=== PATIENT | male | born 1965 | race Caucasian/White ===

== ENCOUNTER 2016-12-06 12:52 | Inpatient (IN) | payer OTHER ==
[2016-12-06 13:38] VITALS: BMI 30.4
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
[2016-12-06] MEDS ORDERED: ACETAMINOPHEN 325 MG TABLET (FP) PO PRN (16:02)
[2016-12-06] MEDS ORDERED: P-EPHED 60MG/TRIPROLIDI 2.5MG TABLET PO PRN (16:02)
[2016-12-06] MEDS ORDERED: MAGNESIUM CITRATE 300 ML BOTTLE PO PRN (16:02)
[2016-12-06] MEDS ORDERED: MENTHOL/PHENOL 1 EACH UD MM PRN (16:02)
[2016-12-06] MEDS ORDERED: MAGNESIUM HYDROX 2400MG/30ML ORAL SUSPENSION 30 ML CUP PO PRN (16:02)
[2016-12-06] MEDS ORDERED: NICOTINE POLACRILEX 4 MG GUM BUC PRN (16:02)
[2016-12-06] MEDS ORDERED: hydrOXYzine PAMOATE 50 MG CAPSULE (FP) PO PRN (16:02)
[2016-12-06] MEDS ORDERED: MAG HYDROX/AL HYDROX/SIMETH 30 ML UNIT-DOSE CUP PO PRN (16:02)
[2016-12-06] MEDS ORDERED: guaiFENesin/D-METHORPHAN HB 10 ML UNIT-DOSE CUPS PO PRN (16:02)
[2016-12-06] MEDS ORDERED: chlordiazePOXIDE HCL 25 MG CAPSULE PO ONE (18:00)
[2016-12-06] MEDS: chlordiazePOXIDE HCL 25 MG CAPSULE PO SCH ×2 (18:13→22:36)
[2016-12-06] MEDS ORDERED: METHADONE HCL 10 MG TABLET (FOR DETOX USE ONLY) PO ONE ×2 (18:15→23:00)
[2016-12-06] MEDS ORDERED: cloNIDine HCL 0.1 MG TABLET PO ONE (18:15)
--- NOTE | 2016-12-06 20:05 | PN ---
S Progress Note Note: RECEIVED PHARMACIST CALL PATIENT IS ON METHADONE, VISTARIL, ZOFRAN QTC NEEDED TO MONITOR CURRENT QTC 489 REPEAT ECG CONTINUE DETOX
[2016-12-06] MEDS: THIAMINE HCL 100 MG TABLET (FP) PO SCH (22:35)
[2016-12-06] MEDS: cloNIDine HCL 0.1 MG TABLET PO SCH (22:35)
[2016-12-06] MEDS: diphenhydrAMINE HCL 50 MG CAPSULE PO PRN (22:36)
[2016-12-07] MEDS: chlordiazePOXIDE HCL 25 MG CAPSULE PO SCH ×4 (05:35→22:52)
[2016-12-07] MEDS: IBUPROFEN 400 MG TABLET (FP) PO PRN ×2 (05:36→17:47)
[2016-12-07] MEDS ORDERED: METHADONE HCL 10 MG TABLET (FOR DETOX USE ONLY) PO SCH (10:00)
[2016-12-07 10:38] LABS: ALK PHOS 121 U/L (45-117); ANION GAP 11 (8-16); BILIRUBIN,TOTAL 0.5 mg/dL (0.2-1.0); CALCIUM 7.5 mg/dL (8.5-10.1); CO2 28 mmol/L (21-32); CREATININE 0.4 mg/dL (0.7-1.3); GLUCOSE,RANDOM 96 mg/dL (74-106); SGOT/AST 42 U/L (15-37); SGPT/ALT 63 U/L (12-78); TOT PROT 7.3 g/dl (6.4-8.2)
[2016-12-07 10:41] LABS: MCH 25.5 pg (25.7-33.7); MCHC 32.1 g/dl (32.0-35.9); MEAN CELL VOLUME 79.5 fl (80-96); MEAN PLT VOLUME 8.3 fl (7.5-11.1); PLATELET COUNT 330 K/MM3 (134-434); RDW 21.1 % (11.9-15.9); WHITE BLOOD COUNT 5.3 K/mm3 (4.0-10.0)
[2016-12-07] MEDS: PRENATAL VITAMINS W/ FOLIC ACID TABLET (FP) PO SCH (10:44)
[2016-12-07] MEDS: NICOTINE 21 MG/24 HOURS TOPICAL PATCH TD SCH (10:44)
[2016-12-07] MEDS: cloNIDine HCL 0.1 MG TABLET PO SCH ×2 (10:45→22:53)
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
[2016-12-07] MEDS: POTASSIUM CHLORIDE TABS 20 MEQ TABLET.ER (FP) PO SCH ×2 (11:06→22:53)
[2016-12-07] MEDS: LOPERAMIDE HCL 2 MG CAPSULE PO PRN ×2 (11:36→17:49)
--- NOTE | 2016-12-07 13:34 | EKG ---
Test Reason : Blood Pressure : / mmHG Vent. Rate : 093 BPM Atrial Rate : 093 BPM P-R Int : 150 ms QRS Dur : 104 ms QT Int : 394 ms P-R-T Axes : 059 024 056 degrees QTc Int : 489 ms NORMAL SINUS RHYTHM PROLONGED QT ABNORMAL ECG NO PREVIOUS ECGS AVAILABLE Confirmed by LUCIA PENA MD ([id number]) on 12/07/2016 1:34:23 PM Referred By: Confirmed By:LUCIA PENA MD
--- NOTE | 2016-12-07 13:36 | EKG ---
Test Reason : Blood Pressure : / mmHG Vent. Rate : 068 BPM Atrial Rate : 068 BPM P-R Int : 158 ms QRS Dur : 102 ms QT Int : 460 ms P-R-T Axes : 049 026 035 degrees QTc Int : 489 ms NORMAL SINUS RHYTHM PROLONGED QT ABNORMAL ECG WHEN COMPARED WITH ECG OF 06-DEC-2016 18:03, NO SIGNIFICANT CHANGE WAS FOUND Confirmed by LUCIA PENA MD ([id number]) on 12/07/2016 1:36:11 PM Referred By: Confirmed By:LUCIA PENA MD
[2016-12-07] MEDS: chlordiazePOXIDE HCL 25 MG CAPSULE PO PRN ×2 (13:57→20:02)
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
[2016-12-07] MEDS: PANTOPRAZOLE 40 MG TABLET (FP) PO SCH (15:38)
[2016-12-07] MEDS: ONDANSETRON *ODT* 4 MG TABLET SL PRN (15:59)
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
[2016-12-07 19:29] LABS: URINE APPEARANCE CLOUDY; URINE COLOR AMBER; URINE GLUCOSE (UA) NEGATIVE (NEGATIVE); URINE KETONE TRACE (NEGATIVE); URINE NITRITE NEGATIVE (NEGATIVE); URINE UROBILINOGEN 2.0 E.U/dl E.U./dl (0.2-1.0)
[2016-12-07 19:30] LABS: URINE BLOOD 1+ (NEGATIVE); URINE LEUK ESTERASE TRACE (NEGATIVE); URINE PROTEIN 2+ (NEGATIVE)
[2016-12-07 19:36] LABS: URINE BACTERIA MODERATE /hpf (NONE SEEN); URINE HYALINE CAST 33 /lpf; URINE MUCUS MANY; URINE RBC 4 /hpf (0-3); URINE WBC 11 /hpf (3-5)
[2016-12-07] MEDS ORDERED: DIVALPROEX SODIUM 250 MG TABLET E.C. (FP) PO SCH (22:00)
[2016-12-07] MEDS: THIAMINE HCL 100 MG TABLET (FP) PO SCH (22:52)
[2016-12-07] MEDS: QUEtiapine FUMARATE 100 MG TABLET (FP) PO SCH (22:53)
[2016-12-08] MEDS: IBUPROFEN 400 MG TABLET (FP) PO PRN ×2 (05:55→15:24)
[2016-12-08] MEDS: chlordiazePOXIDE HCL 25 MG CAPSULE PO SCH ×2 (05:55→11:05)
--- NOTE | 2016-12-08 10:36 | EKG ---
Test Reason : Blood Pressure : / mmHG Vent. Rate : 095 BPM Atrial Rate : 095 BPM P-R Int : 150 ms QRS Dur : 096 ms QT Int : 384 ms P-R-T Axes : 056 054 051 degrees QTc Int : 482 ms NORMAL SINUS RHYTHM PROLONGED QT ABNORMAL ECG WHEN COMPARED WITH ECG OF 07-DEC-2016 07:00, NO SIGNIFICANT CHANGE WAS FOUND Confirmed by GUNNER DRAKE MD ([id number]) on 12/08/2016 10:36:44 AM Referred By: Confirmed By:GUNNER DRAKE MD
[2016-12-08] MEDS: cloNIDine HCL 0.1 MG TABLET PO SCH ×2 (11:01→22:53)
[2016-12-08] MEDS: POTASSIUM CHLORIDE TABS 20 MEQ TABLET.ER (FP) PO SCH ×2 (11:02→22:53)
[2016-12-08] MEDS: PRENATAL VITAMINS W/ FOLIC ACID TABLET (FP) PO SCH (11:02)
[2016-12-08] MEDS: METHADONE HCL 5 MG TABLET (FOR DETOX USE ONLY) PO SCH (11:02)
[2016-12-08] MEDS: PANTOPRAZOLE 40 MG TABLET (FP) PO SCH (11:03)
[2016-12-08] MEDS: NICOTINE 21 MG/24 HOURS TOPICAL PATCH TD SCH (11:04)
--- NOTE | 2016-12-08 11:20 | PN ---
[facility] CIWA - CIWA Score Nausea/Vomitin-No Nausea/No Vomiting Muscle Tremors: 4-Moderate,w/Arms Extend Anxiety: 4-Mod. Anxious/Guarded Agitation: 4-Moderately Restless Paroxysmal Sweats: 1-Minimal Palms Moist Orientation: 0-Oriented Tacttile Disturbances: 3-Moderate Itch/Numb/Burn Auditory Disturbances: 0-None Visual Disturbances: 0-None Headache: 0-None Present CIWA-Ar Total Score: 16 BHS COWS - Scale Resting Pulse: 2= [place] 101-120 Sweatin= Chills/Flushing Restless Observation: 3= Extraneous Movement Pupil Size: 2= Moderately Dilated Bone or Joint Aches: 4=Acute Joint/Muscle Pain Runny Nose/ Eye Tearin= Nasal Congestion GI Upset > 30mins: 1= Stomach Cramp Tremor Observation of Outstretched Hands: 2= Slight Tremor Visible Yawning Observation: 1= 1-2x During Session Anxiety or Irritability: 1=Feels Anxious/Irritable Goose Flesh Skin: 0=Smooth Skin COWS Score: 18 [facility] Progress Note (SOAP) Subjective: ANXIETY, SWEATS, TREMORS, BODY ACHES,INTERMITTENT SLEEP. C/O CHRONIC ULCER ON SACRUM AND BOTH CHEEKS OF BUTTOCKS. Objective: 12/08/16 14:05 Vital Signs Temperature 96.3 F L 12/08/16 10:25 Pulse Rate 102 H 12/08/16 10:25 Respiratory Rate 16 12/08/16 10:25 Blood Pressure 100/56 12/08/16 10:25 O2 Sat by Pulse Oximetry (%) Laboratory Last Values WBC 5.3 K/mm3 (4.0-10.0) 12/07/16 07:00 RBC 3.25 M/mm3 (4.00-5.60) L 12/07/16 07:00 Hgb 8.3 GM/dL (11.7-16.9) L 12/07/16 07:00 Hct 25.8 % (35.4-49) L 12/07/16 07:00 MCV 79.5 fl (80-96) L 12/07/16 07:00 MCHC 32.1 g/dl (32.0-35.9) 12/07/16 07:00 RDW 21.1 % (11.9-15.9) H 12/07/16 07:00 Plt Count 330 K/MM3 (134-434) 12/07/16 07:00 MPV 8.3 fl (7.5-11.1) 12/07/16 07:00 Sodium 135 mmol/L (136-145) L 12/07/16 07:00 Potassium 3.1 mmol/L (3.5-5.1) L 12/07/16 07:00 Chloride 96 mmol/L (98-107) L 12/07/16 07:00 Carbon Dioxide 28 mmol/L (21-32) 12/07/16 07:00 Anion Gap 11 (8-16) 12/07/16 07:00 BUN 4 mg/dL (7-18) L 12/07/16 07:00 Creatinine 0.4 mg/dL (0.7-1.3) L 12/07/16 07:00 Creat Clearance w eGFR > 60 (>60) 12/07/16 07:00 Random Glucose 96 mg/dL (74-106) 12/07/16 07:00 Calcium 7.5 mg/dL (8.5-10.1) L 12/07/16 07:00 Total Bilirubin 0.5 mg/dL (0.2-1.0) 12/07/16 07:00 AST 42 U/L (15-37) H 12/07/16 07:00 ALT 63 U/L (12-78) 12/07/16 07:00 Alkaline Phosphatase 121 U/L (45-117) H 12/07/16 07:00 Total Protein 7.3 g/dl (6.4-8.2) 12/07/16 07:00 Albumin 2.0 g/dl (3.4-5.0) L 12/07/16 07:00 Urine Color [place] 12/07/16 12:00 Urine Appearance Cloudy 12/07/16 12:00 Urine pH 5.0 (5.0-8.0) 12/07/16 12:00 Ur Specific [place] 1.035 (1.001-1.035) 12/07/16 12:00 Urine Protein 2+ (NEGATIVE) H 12/07/16 12:00 Urine Glucose (UA) Negative (NEGATIVE) 12/07/16 12:00 Urine Ketones Trace (NEGATIVE) H 12/07/16 12:00 Urine Blood 1+ (NEGATIVE) H 12/07/16 12:00 Urine Nitrite Negative (NEGATIVE) 12/07/16 12:00 Urine Bilirubin 2.0 (NEGATIVE) 12/07/16 12:00 Urine Urobilinogen 2.0 e.u/dl E.U./dl (0.2-1.0) 12/07/16 12:00 Ur Leukocyte Esterase Trace (NEGATIVE) H 12/07/16 12:00 Urine RBC 4 /hpf (0-3) 12/07/16 12:00 Urine WBC 11 /hpf (3-5) 12/07/16 12:00 Ur Epithelial Cells Moderate /hpf (FEW) 12/07/16 12:00 Urine Bacteria Moderate /hpf (NONE SEEN) 12/07/16 12:00 Hyaline Casts 33 /lpf 12/07/16 12:00 Urine Mucus Many 12/07/16 12:00 RPR Titer Nonreactive (NONREACTIVE) 12/07/16 07:00 BOTTOCKS:LARGE AREAS OF GRANULATED TISSUE ON BOTH CHEEKS, CLEAN WITH NO DRAINAGE OR PAIN. ABNORMAL LABS/UA ORDERED FOR REPEAT. Assessment: 12/08/16 14:05 WITHDRAWAL SX Plan: CONTINUE DETOX SACRAL/BUTTOCKS ULCER CARE DIRECTED.
[2016-12-08] MEDS: chlordiazePOXIDE HCL 25 MG CAPSULE PO PRN (15:28)
[2016-12-08] MEDS: chlordiazePOXIDE 5 MG CAPSULE PO SCH ×2 (18:20→22:53)
[2016-12-08] MEDS: QUEtiapine FUMARATE 100 MG TABLET (FP) PO SCH (22:53)
[2016-12-08] MEDS: THIAMINE HCL 100 MG TABLET (FP) PO SCH (22:53)
[2016-12-09] MEDS: IBUPROFEN 400 MG TABLET (FP) PO PRN ×3 (05:40→22:21)
[2016-12-09] MEDS: chlordiazePOXIDE 5 MG CAPSULE PO SCH ×2 (05:40→10:23)
[2016-12-09 10:03] LABS: MCH 25.2 pg (25.7-33.7); MCHC 31.1 g/dl (32.0-35.9); MEAN PLT VOLUME 8.4 fl (7.5-11.1); PLATELET COUNT 392 K/MM3 (134-434); RDW 20.6 % (11.9-15.9); WHITE BLOOD COUNT 5.1 K/mm3 (4.0-10.0)
[2016-12-09] MEDS: cloNIDine HCL 0.1 MG TABLET PO SCH ×2 (10:23→22:20)
[2016-12-09] MEDS: PANTOPRAZOLE 40 MG TABLET (FP) PO SCH (10:23)
[2016-12-09] MEDS: POTASSIUM CHLORIDE TABS 20 MEQ TABLET.ER (FP) PO SCH ×2 (10:23→22:20)
[2016-12-09] MEDS: NICOTINE 21 MG/24 HOURS TOPICAL PATCH TD SCH (10:24)
[2016-12-09] MEDS: METHADONE HCL 5 MG TABLET (FOR DETOX USE ONLY) PO SCH (10:24)
[2016-12-09] MEDS: PRENATAL VITAMINS W/ FOLIC ACID TABLET (FP) PO SCH (10:24)
[2016-12-09 10:25] LABS: ALBUMIN 1.9 g/dl (3.4-5.0); ALK PHOS 101 U/L (45-117); ANION GAP 9 (8-16); BILIRUBIN,TOTAL 0.4 mg/dL (0.2-1.0); CALCIUM 7.9 mg/dL (8.5-10.1); CO2 29 mmol/L (21-32); CREATININE 0.5 mg/dL (0.7-1.3); GLUCOSE,RANDOM 94 mg/dL (74-106); SGOT/AST 34 U/L (15-37); SGPT/ALT 48 U/L (12-78); TOT PROT 7.1 g/dl (6.4-8.2)
[2016-12-09 10:51] LABS: ANISOCYTOSIS 2+; HYPOCHROMIA 1+; MICROCYTOSIS 1+; PLATELET COMMENT2 NO CLUMPING NOTED; PLATELET ESTIMATE INCREASED (NORMAL)
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
[2016-12-09] MEDS: FERROUS SO4 325 MG TABLET (FP) PO SCH ×2 (13:10→22:20)
[2016-12-09] MEDS: chlordiazePOXIDE HCL 10 MG CAPSULE PO SCH ×2 (17:43→22:20)
[2016-12-09] MEDS: THIAMINE HCL 100 MG TABLET (FP) PO SCH (22:19)
[2016-12-09] MEDS: LOPERAMIDE HCL 2 MG CAPSULE PO PRN (22:20)
[2016-12-09] MEDS: diphenhydrAMINE HCL 50 MG CAPSULE PO PRN (22:20)
[2016-12-09] MEDS: QUEtiapine FUMARATE 100 MG TABLET (FP) PO SCH (22:20)
[2016-12-09 23:08] LABS: URINE APPEARANCE CLEAR; URINE BILIRUBIN NEGATIVE (NEGATIVE); URINE BLOOD NEGATIVE (NEGATIVE); URINE COLOR LTYELLOW; URINE GLUCOSE (UA) NEGATIVE (NEGATIVE); URINE KETONE NEGATIVE (NEGATIVE); URINE LEUK ESTERASE NEGATIVE (NEGATIVE); URINE NITRITE NEGATIVE (NEGATIVE); URINE PROTEIN NEGATIVE (NEGATIVE); URINE UROBILINOGEN 2.0 E.U/dl E.U./dl (0.2-1.0)
[2016-12-10] MEDS: chlordiazePOXIDE HCL 10 MG CAPSULE PO SCH ×2 (05:58→10:34)
[2016-12-10] MEDS ORDERED: METHADONE HCL 10 MG TABLET (FOR DETOX USE ONLY) PO SCH (10:00)
[2016-12-10] MEDS: cloNIDine HCL 0.1 MG TABLET PO SCH ×2 (10:34→22:24)
[2016-12-10] MEDS: PRENATAL VITAMINS W/ FOLIC ACID TABLET (FP) PO SCH (10:34)
[2016-12-10] MEDS: POTASSIUM CHLORIDE TABS 20 MEQ TABLET.ER (FP) PO SCH ×2 (10:34→22:24)
[2016-12-10] MEDS: FERROUS SO4 325 MG TABLET (FP) PO SCH ×2 (10:34→22:24)
[2016-12-10] MEDS: PANTOPRAZOLE 40 MG TABLET (FP) PO SCH (10:34)
[2016-12-10] MEDS: NICOTINE 21 MG/24 HOURS TOPICAL PATCH TD SCH (10:34)
[2016-12-10] MEDS: THIAMINE HCL 100 MG TABLET (FP) PO SCH (22:24)
[2016-12-10] MEDS: QUEtiapine FUMARATE 100 MG TABLET (FP) PO SCH (22:24)
[2016-12-10] MEDS: diphenhydrAMINE HCL 50 MG CAPSULE PO PRN (22:24)
[2016-12-10] MEDS: IBUPROFEN 400 MG TABLET (FP) PO PRN (22:26)
[2016-12-11] MEDS ORDERED: METHADONE HCL 5 MG TABLET (FOR DETOX USE ONLY) PO SCH (06:00)
[2016-12-11 09:52] VITALS: BP 115/71; PULSE 107; TEMP 96.8
[2016-12-11] MEDS: LOPERAMIDE HCL 2 MG CAPSULE PO PRN (10:09)
[2016-12-11] MEDS: POTASSIUM CHLORIDE TABS 20 MEQ TABLET.ER (FP) PO SCH (10:09)
[2016-12-11] MEDS: cloNIDine HCL 0.1 MG TABLET PO SCH (10:09)
[2016-12-11] MEDS: PRENATAL VITAMINS W/ FOLIC ACID TABLET (FP) PO SCH (10:09)
[2016-12-11] MEDS: PANTOPRAZOLE 40 MG TABLET (FP) PO SCH (10:10)
[2016-12-11] MEDS: NICOTINE 21 MG/24 HOURS TOPICAL PATCH TD SCH (10:10)
[2016-12-11] MEDS: FERROUS SO4 325 MG TABLET (FP) PO SCH (10:10)
[2016-12-11] MEDS: ONDANSETRON *ODT* 4 MG TABLET SL PRN (11:12)
--- NOTE | 2016-12-11 13:07 | DS ---
[facility] Detox Discharge Summary Admission Date: 12/06/16 Discharge Date: 12/11/16 - History Present History: Alcohol Dependence, Opioid Dependence Pertinent Past History: Anemia - Physical Exam Results Vital Signs: Vital Signs Temperature 96.8 F L 12/11/16 09:51 Pulse Rate 107 H 12/11/16 09:51 Respiratory Rate 18 12/11/16 09:51 Blood Pressure 115/71 12/11/16 09:51 O2 Sat by Pulse Oximetry (%) Pertinent Admission Physical Exam Findings: Withdrawal symptoms Laboratory Tests 12/07/16 12/07/16 12/07/16 07:00 07:00 07:00 WBC 5.3 RBC 3.25 L Hgb 8.3 L Hct 25.8 L MCV 79.5 L MCHC 32.1 RDW 21.1 H Plt Count 330 MPV 8.3 Platelet Estimate Platelet Comment Hypochromic-Microcytic Anisocytosis Microcytosis Sodium 135 L Potassium 3.1 L Chloride 96 L Carbon Dioxide 28 Anion Gap 11 BUN 4 L Creatinine 0.4 L Creat Clearance w eGFR > 60 Random Glucose 96 Calcium 7.5 L Total Bilirubin 0.5 AST 42 H ALT 63 Alkaline Phosphatase 121 H Total Protein 7.3 Albumin 2.0 L Urine Color Urine Appearance Urine pH Ur Specific [place] Urine Protein Urine Glucose (UA) Urine Ketones Urine Blood Urine Nitrite Urine Bilirubin Urine Urobilinogen Ur Leukocyte Esterase Urine RBC Urine WBC Ur Epithelial Cells Urine Bacteria Hyaline Casts Urine Mucus RPR Titer Nonreactive 12/07/16 12/09/16 12/09/16 12:00 07:16 07:16 WBC 5.1 RBC 3.29 L Hgb 8.3 L Hct 26.7 L MCV 81.0 MCHC 31.1 L RDW 20.6 H Plt Count 392 MPV 8.4 Platelet Estimate Increased Platelet Comment No clumping noted Hypochromic-Microcytic 1+ Anisocytosis 2+ Microcytosis 1+ Sodium 136 Potassium 3.8 D Chloride 98 Carbon Dioxide 29 Anion Gap 9 BUN 4 L Creatinine 0.5 L D Creat Clearance w eGFR > 60 Random Glucose 94 Calcium 7.9 L Total Bilirubin 0.4 AST 34 ALT 48 D Alkaline Phosphatase 101 Total Protein 7.1 Albumin 1.9 L Urine Color [place] Urine Appearance Cloudy Urine pH 5.0 Ur Specific [place] 1.035 Urine Protein 2+ H Urine Glucose (UA) Negative Urine Ketones Trace H Urine Blood 1+ H Urine Nitrite Negative Urine Bilirubin 2.0 Urine Urobilinogen 2.0 e.u/dl Ur Leukocyte Esterase Trace H Urine RBC 4 Urine WBC 11 Ur Epithelial Cells Moderate Urine Bacteria Moderate Hyaline Casts 33 Urine Mucus Many RPR Titer 12/09/16 23:00 WBC RBC Hgb Hct MCV MCHC RDW Plt Count MPV Platelet Estimate Platelet Comment Hypochromic-Microcytic Anisocytosis Microcytosis Sodium Potassium Chloride Carbon Dioxide Anion Gap BUN Creatinine Creat Clearance w eGFR Random Glucose Calcium Total Bilirubin AST ALT Alkaline Phosphatase Total Protein Albumin Urine Color [place] Urine Appearance Clear Urine pH 7.0 D Ur Specific [place] 1.014 Urine Protein Negative Urine Glucose (UA) Negative Urine Ketones Negative Urine Blood Negative Urine Nitrite Negative Urine Bilirubin Negative Urine Urobilinogen 2.0 e.u/dl Ur Leukocyte Esterase Negative Urine RBC Urine WBC Ur Epithelial Cells Urine Bacteria Hyaline Casts Urine Mucus RPR Titer Labs noted - Treatment Hospital Course: Detox Protocol Followed, Detoxed Safely, Responded well, Discharged Condition Good - Medication Discharge Medications: Ambulatory Orders Divalproex [Depakote -] 500 mg PO BID 12/06/16 Quetiapine Fumarate [Seroquel -] 200 mg PO HS 12/06/16 - Diagnosis (1) Alcohol dependence with uncomplicated withdrawal Current Visit: Yes Status: Acute (2) Nicotine dependence Current Visit: Yes Status: Chronic Qualifiers: Nicotine product type: cigarettes Substance use status: uncomplicated Qualified Code(s): F17.210 - Nicotine dependence, cigarettes, uncomplicated (3) Opioid dependence with withdrawal Current Visit: Yes Status: Acute (4) Anemia, unspecified Current Visit: Yes Status: Acute (5) Seizure disorder Current Visit: Yes Status: Chronic (6) Depression Current Visit: Yes Status: Chronic (7) Bipolar disorder Current Visit: Yes Status: Chronic - AMA Did Patient Leave Against Medical Advice: No
== END 2016-12-11 12:32 | disposition home or self-care (01) | DRG 773 ==
LOC: YASAS 12:52 → Y3N 17:19
PROVIDERS: ADMIT Internal Medicine; ATTEND Internal Medicine
PROC: HZ2ZZZZ Detoxification Services for Substance Abuse Treatment (ICD-10-PCS; principal; 2016-12-11)
DX: F11.23 Opioid dependence with withdrawal (principal); F10.230 Alcohol dependence with withdrawal, uncomplicated; F17.210 Nicotine dependence, cigarettes, uncomplicated; F31.89 Other bipolar disorder; G40.909 Epilepsy, unspecified, not intractable, without status epilepticus; D64.9 Anemia, unspecified
CPT/HCPCS: 36415; 71020-TC; 73110-TC-LT; 73130-TC-LT; 80053; 81003; 81015; 85027; 86593; 87086; 93005; 93010

== ENCOUNTER 2019-09-23 19:36 | Inpatient (IN) | payer OTHER ==
[2019-09-23 20:43] VITALS: BMI 31.4
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
[2019-09-23] MEDS ORDERED: guaiFENesin 200 MG/10 ML 10 ML UNIT-DOSE CUPS PO PRN (23:19)
[2019-09-23] MEDS ORDERED: NICOTINE POLACRILEX 2 MG GUM BC PRN (23:19)
[2019-09-23] MEDS ORDERED: MAGNESIUM CITRATE 300 ML BOTTLE PO PRN (23:19)
[2019-09-23] MEDS ORDERED: MENTHOL/PHENOL 1 EACH UD MM PRN (23:19)
[2019-09-23] MEDS ORDERED: P-EPHED 60MG/TRIPROLIDI 2.5MG TABLET PO PRN (23:19)
[2019-09-23] MEDS ORDERED: IBUPROFEN 400 MG TABLET (FP) PO PRN (23:19)
[2019-09-23] MEDS ORDERED: LOPERAMIDE HCL 2 MG CAPSULE PO PRN (23:19)
[2019-09-23] MEDS ORDERED: QUEtiapine FUMARATE 100 MG TABLET (FP) PO ONE (23:28)
[2019-09-24] MEDS: DIVALPROEX SODIUM 500 MG TABLET E.C. PO SCH ×3 (01:04→21:34)
[2019-09-24] MEDS ORDERED: CLINDAMYCIN PHOSPHATE 1% TOPICAL GEL 30 GM TUBE TP SCH (10:00)
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
--- NOTE | 2019-09-24 10:24 | EKG ---
Test Reason : Blood Pressure : / mmHG Vent. Rate : 079 BPM Atrial Rate : 079 BPM P-R Int : 176 ms QRS Dur : 102 ms QT Int : 388 ms P-R-T Axes : 049 009 040 degrees QTc Int : 444 ms NORMAL SINUS RHYTHM NORMAL ECG WHEN COMPARED WITH ECG OF 08-DEC-2016 06:36, NO SIGNIFICANT CHANGE WAS FOUND Confirmed by MD Alma, Jan ([id number]) on 09/24/2019 10:24:24 AM Referred By: SHANE Confirmed By:Jan Marquez MD
[2019-09-24 11:53] LABS: PH,URINE >= 9.0 (5.0-8.0); URINE APPEARANCE CLEAR; URINE BILIRUBIN NEGATIVE (NEGATIVE); URINE COLOR YELLOW; URINE GLUCOSE (UA) NEGATIVE (NEGATIVE); URINE KETONE NEGATIVE (NEGATIVE); URINE LEUK ESTERASE NEGATIVE (NEGATIVE); URINE NITRITE NEGATIVE (NEGATIVE); URINE PROTEIN NEGATIVE (NEGATIVE); URINE UROBILINOGEN 0.2 mg/dL (0.2-1.0)
[2019-09-24] MEDS: PRENATAL VITAMINS W/ FOLIC ACID TABLET (FP) PO SCH (12:02)
[2019-09-24] MEDS: NICOTINE 21 MG/24 HOURS TOPICAL PATCH TD SCH (12:02)
[2019-09-24] MEDS: CLINDAMYCIN PHOSPHATE 1% TOPICAL GEL 30 GM TUBE TP SCH ×2 (12:03→21:37)
[2019-09-24] MEDS: MINERAL OIL/PETROLAT/WATER TOPICAL CREAM 113 GM JAR TP SCH ×2 (12:04→21:37)
[2019-09-24] MEDS: CHLORHEXIDINE GLUCONATE TP SCH (13:00)
[2019-09-24 14:50] LABS: HEMATOCRIT 36.4 % (35.4-49); HEMOGLOBIN 11.8 GM/dL (11.7-16.9); MCH 28.6 pg (25.7-33.7); MCHC 32.5 g/dl (32.0-35.9); MEAN CELL VOLUME 88.2 fl (80-96); MEAN PLT VOLUME 9.7 fl (7.5-11.1); PLATELET COUNT 260 K/MM3 (134-434); RBC 4.13 M/mm3 (4.00-5.60); RDW 18.6 % (11.9-15.9); WHITE BLOOD COUNT 6.2 K/mm3 (4.0-10.0)
[2019-09-24 15:01] LABS: ALBUMIN 3.1 g/dl (3.4-5.0); BILIRUBIN,TOTAL 0.1 mg/dL (0.2-1); BLOOD UREA NITROGEN 18.9 mg/dL (7-18); CALCIUM 8.9 mg/dL (8.5-10.1); CREATININE 0.6 mg/dL (0.55-1.3); POTASSIUM 4.5 mmol/L (3.5-5.1); TOT PROT 7.3 g/dl (6.4-8.2)
--- NOTE | 2019-09-24 15:30 | PN ---
[facility] Progress Note Note: Pt is a 54 y/o male with a hx of VELMA-alcohol dependence admitted to rehab from [facility]. Pt reports he was discharged from [facility] yesterday for abscess on his buttocks after 2 weeks stay. Reports he was referred here after discharge yesterday. Vital Signs - 24 hr 09/23/19 09/24/19 09/24/19 20:28 03:30 07:17 Temperature 97.8 F Pulse Rate 85 97 H Respiratory 18 20 20 Rate Blood Pressure 110/72 112/68 alert o x 3 nad oob ambulating with steady gait Examined pt with nurse Sarah- large area of both buttocks with healed granulated skin tissue. A/P S/P heeling abscess, buttocks Continue cleocin gel clean buttocks area as directed Increase [id number] mg po q6h prn for pain Use tucks wipes after each BM or as needed.
[2019-09-24] MEDS ORDERED: WITCH HAZEL 50% (TUCKS) 40 PAD/JAR PAD TP PRN (15:52)
[2019-09-24] MEDS: QUEtiapine FUMARATE 300 MG TABLET PO SCH (21:34)
[2019-09-24] MEDS: IBUPROFEN 600 MG TABLET (FP) PO PRN (21:35)
[2019-09-24] MEDS: THIAMINE HCL 100 MG TABLET (FP) PO SCH (21:36)
[2019-09-25] MEDS: IBUPROFEN 600 MG TABLET (FP) PO PRN ×2 (06:19→21:25)
[2019-09-25] MEDS: NICOTINE 21 MG/24 HOURS TOPICAL PATCH TD SCH (10:39)
[2019-09-25] MEDS: DIVALPROEX SODIUM 500 MG TABLET E.C. PO SCH ×2 (10:40→21:23)
[2019-09-25] MEDS: PRENATAL VITAMINS W/ FOLIC ACID TABLET (FP) PO SCH (10:40)
[2019-09-25] MEDS: ACETAMINOPHEN 325 MG TABLET (FP) PO PRN (10:42)
[2019-09-25] MEDS: hydrOXYzine PAMOATE 50 MG CAPSULE (FP) PO PRN (10:43)
[2019-09-25] MEDS: CHLORHEXIDINE GLUCONATE TP SCH (12:50)
[2019-09-25] MEDS: CLINDAMYCIN PHOSPHATE 1% TOPICAL GEL 30 GM TUBE TP SCH ×2 (12:50→21:24)
[2019-09-25] MEDS: MINERAL OIL/PETROLAT/WATER TOPICAL CREAM 113 GM JAR TP SCH ×2 (12:51→21:24)
[2019-09-25] MEDS: QUEtiapine FUMARATE 300 MG TABLET PO SCH (21:24)
[2019-09-25] MEDS: THIAMINE HCL 100 MG TABLET (FP) PO SCH (21:24)
[2019-09-26] MEDS: IBUPROFEN 600 MG TABLET (FP) PO PRN ×3 (06:33→21:26)
[2019-09-26] MEDS: DIVALPROEX SODIUM 500 MG TABLET E.C. PO SCH ×2 (09:49→21:24)
[2019-09-26] MEDS: PRENATAL VITAMINS W/ FOLIC ACID TABLET (FP) PO SCH (09:49)
[2019-09-26] MEDS: CLINDAMYCIN PHOSPHATE 1% TOPICAL GEL 30 GM TUBE TP SCH ×2 (09:50→21:24)
[2019-09-26] MEDS: MINERAL OIL/PETROLAT/WATER TOPICAL CREAM 113 GM JAR TP SCH ×2 (09:50→21:24)
[2019-09-26] MEDS: CHLORHEXIDINE GLUCONATE TP SCH (09:50)
[2019-09-26] MEDS: NICOTINE 21 MG/24 HOURS TOPICAL PATCH TD SCH (09:51)
[2019-09-26] MEDS: TOLNAFTATE 1% CREAM 15 GM TUBE TP SCH ×2 (13:57→21:47)
[2019-09-26] MEDS: THIAMINE HCL 100 MG TABLET (FP) PO SCH (21:24)
[2019-09-26] MEDS: QUEtiapine FUMARATE 300 MG TABLET PO SCH (21:24)
[2019-09-27] MEDS: PRENATAL VITAMINS W/ FOLIC ACID TABLET (FP) PO SCH (10:22)
[2019-09-27] MEDS: DIVALPROEX SODIUM 500 MG TABLET E.C. PO SCH ×2 (10:22→21:18)
[2019-09-27] MEDS: NICOTINE 21 MG/24 HOURS TOPICAL PATCH TD SCH (10:22)
[2019-09-27] MEDS: CHLORHEXIDINE GLUCONATE TP SCH (10:23)
[2019-09-27] MEDS: CLINDAMYCIN PHOSPHATE 1% TOPICAL GEL 30 GM TUBE TP SCH ×2 (10:25→21:21)
[2019-09-27] MEDS: MINERAL OIL/PETROLAT/WATER TOPICAL CREAM 113 GM JAR TP SCH ×2 (10:26→21:21)
[2019-09-27] MEDS: TOLNAFTATE 1% CREAM 15 GM TUBE TP SCH ×2 (10:38→21:21)
[2019-09-27] MEDS: METHOCARBAMOL 500 MG TABLET PO PRN ×2 (11:02→21:20)
[2019-09-27] MEDS: IBUPROFEN 600 MG TABLET (FP) PO PRN ×2 (11:02→21:20)
[2019-09-27] MEDS: QUEtiapine FUMARATE 300 MG TABLET PO SCH (21:18)
[2019-09-27] MEDS: THIAMINE HCL 100 MG TABLET (FP) PO SCH (21:21)
[2019-09-28] MEDS: METHOCARBAMOL 500 MG TABLET PO PRN ×2 (06:47→21:24)
[2019-09-28] MEDS: hydrOXYzine PAMOATE 50 MG CAPSULE (FP) PO PRN (06:47)
[2019-09-28] MEDS: IBUPROFEN 600 MG TABLET (FP) PO PRN ×2 (06:47→21:26)
[2019-09-28] MEDS: DIVALPROEX SODIUM 500 MG TABLET E.C. PO SCH ×2 (10:32→21:23)
[2019-09-28] MEDS: CHLORHEXIDINE GLUCONATE TP SCH (10:32)
[2019-09-28] MEDS: PRENATAL VITAMINS W/ FOLIC ACID TABLET (FP) PO SCH (10:32)
[2019-09-28] MEDS: CLINDAMYCIN PHOSPHATE 1% TOPICAL GEL 30 GM TUBE TP SCH ×2 (10:33→21:29)
[2019-09-28] MEDS: MINERAL OIL/PETROLAT/WATER TOPICAL CREAM 113 GM JAR TP SCH ×2 (10:33→21:25)
[2019-09-28] MEDS: NICOTINE 21 MG/24 HOURS TOPICAL PATCH TD SCH (10:33)
[2019-09-28] MEDS: TOLNAFTATE 1% CREAM 15 GM TUBE TP SCH ×3 (10:33→21:24)
[2019-09-28] MEDS: QUEtiapine FUMARATE 300 MG TABLET PO SCH (21:24)
[2019-09-28] MEDS: THIAMINE HCL 100 MG TABLET (FP) PO SCH (21:24)
[2019-09-29] MEDS: IBUPROFEN 600 MG TABLET (FP) PO PRN ×3 (06:53→21:15)
[2019-09-29] MEDS: METHOCARBAMOL 500 MG TABLET PO PRN ×3 (06:53→21:15)
[2019-09-29] MEDS: MINERAL OIL/PETROLAT/WATER TOPICAL CREAM 113 GM JAR TP SCH ×2 (09:57→21:13)
[2019-09-29] MEDS: TOLNAFTATE 1% CREAM 15 GM TUBE TP SCH ×2 (09:57→21:17)
[2019-09-29] MEDS: NICOTINE 21 MG/24 HOURS TOPICAL PATCH TD SCH (09:57)
[2019-09-29] MEDS: PRENATAL VITAMINS W/ FOLIC ACID TABLET (FP) PO SCH (09:57)
[2019-09-29] MEDS: DIVALPROEX SODIUM 500 MG TABLET E.C. PO SCH ×2 (09:57→21:13)
[2019-09-29] MEDS: CLINDAMYCIN PHOSPHATE 1% TOPICAL GEL 30 GM TUBE TP SCH ×2 (09:58→21:13)
[2019-09-29] MEDS: CHLORHEXIDINE GLUCONATE TP SCH (09:59)
[2019-09-29] MEDS: THIAMINE HCL 100 MG TABLET (FP) PO SCH (21:13)
[2019-09-29] MEDS: QUEtiapine FUMARATE 300 MG TABLET PO SCH (21:13)
[2019-09-30] MEDS: CHLORHEXIDINE GLUCONATE TP SCH (10:05)
[2019-09-30] MEDS: MINERAL OIL/PETROLAT/WATER TOPICAL CREAM 113 GM JAR TP SCH ×3 (10:06→21:40)
[2019-09-30] MEDS: NICOTINE 21 MG/24 HOURS TOPICAL PATCH TD SCH (10:06)
[2019-09-30] MEDS: PRENATAL VITAMINS W/ FOLIC ACID TABLET (FP) PO SCH (10:06)
[2019-09-30] MEDS: CLINDAMYCIN PHOSPHATE 1% TOPICAL GEL 30 GM TUBE TP SCH ×3 (10:06→21:40)
[2019-09-30] MEDS: DIVALPROEX SODIUM 500 MG TABLET E.C. PO SCH ×2 (10:06→21:23)
[2019-09-30] MEDS: TOLNAFTATE 1% CREAM 15 GM TUBE TP SCH ×2 (10:06→21:25)
[2019-09-30] MEDS: IBUPROFEN 600 MG TABLET (FP) PO PRN ×2 (10:08→21:24)
[2019-09-30] MEDS: METHOCARBAMOL 500 MG TABLET PO PRN ×2 (10:48→21:23)
[2019-09-30] MEDS: QUEtiapine FUMARATE 300 MG TABLET PO SCH (21:24)
[2019-09-30] MEDS: THIAMINE HCL 100 MG TABLET (FP) PO SCH (21:24)
[2019-10-01] MEDS: NICOTINE 21 MG/24 HOURS TOPICAL PATCH TD SCH (10:19)
[2019-10-01] MEDS: DIVALPROEX SODIUM 500 MG TABLET E.C. PO SCH ×2 (10:19→21:32)
[2019-10-01] MEDS: CHLORHEXIDINE GLUCONATE TP SCH (10:19)
[2019-10-01] MEDS: PRENATAL VITAMINS W/ FOLIC ACID TABLET (FP) PO SCH (10:19)
[2019-10-01] MEDS: TOLNAFTATE 1% CREAM 15 GM TUBE TP SCH ×2 (10:21→21:34)
[2019-10-01] MEDS: CLINDAMYCIN PHOSPHATE 1% TOPICAL GEL 30 GM TUBE TP SCH ×2 (10:21→21:34)
[2019-10-01] MEDS: MINERAL OIL/PETROLAT/WATER TOPICAL CREAM 113 GM JAR TP SCH ×2 (10:21→21:34)
[2019-10-01] MEDS: IBUPROFEN 600 MG TABLET (FP) PO PRN ×2 (10:25→21:35)
[2019-10-01] MEDS: METHOCARBAMOL 500 MG TABLET PO PRN ×2 (10:25→21:35)
[2019-10-01] MEDS: MAG HYDROX/AL HYDROX/SIMETH 30 ML UNIT-DOSE CUP PO PRN (15:46)
[2019-10-01] MEDS: QUEtiapine FUMARATE 300 MG TABLET PO SCH (21:32)
[2019-10-01] MEDS: MAGNESIUM HYDROX 2400MG/30ML ORAL SUSPENSION 30 ML CUP PO PRN (21:33)
[2019-10-01] MEDS: THIAMINE HCL 100 MG TABLET (FP) PO SCH (21:34)
[2019-10-02] MEDS: MAG HYDROX/AL HYDROX/SIMETH 30 ML UNIT-DOSE CUP PO PRN ×3 (09:38→23:26)
[2019-10-02] MEDS: DIVALPROEX SODIUM 500 MG TABLET E.C. PO SCH ×2 (10:49→21:32)
[2019-10-02] MEDS: PRENATAL VITAMINS W/ FOLIC ACID TABLET (FP) PO SCH (10:49)
[2019-10-02] MEDS: TOLNAFTATE 1% CREAM 15 GM TUBE TP SCH ×2 (10:49→21:32)
[2019-10-02] MEDS: NICOTINE 21 MG/24 HOURS TOPICAL PATCH TD SCH (10:49)
[2019-10-02] MEDS: CLINDAMYCIN PHOSPHATE 1% TOPICAL GEL 30 GM TUBE TP SCH ×2 (10:50→21:32)
[2019-10-02] MEDS: CHLORHEXIDINE GLUCONATE TP SCH (10:51)
[2019-10-02] MEDS: MINERAL OIL/PETROLAT/WATER TOPICAL CREAM 113 GM JAR TP SCH ×2 (10:51→21:32)
[2019-10-02] MEDS: MAGNESIUM HYDROX 2400MG/30ML ORAL SUSPENSION 30 ML CUP PO PRN (10:53)
[2019-10-02] MEDS: IBUPROFEN 600 MG TABLET (FP) PO PRN ×2 (10:55→21:34)
[2019-10-02] MEDS: METHOCARBAMOL 500 MG TABLET PO PRN (10:55)
[2019-10-02] MEDS: QUEtiapine FUMARATE 300 MG TABLET PO SCH (21:32)
[2019-10-02] MEDS: THIAMINE HCL 100 MG TABLET (FP) PO SCH (21:33)
[2019-10-02] MEDS: MELATONIN 5 MG TABLETS PO PRN (21:34)
[2019-10-03] MEDS: hydrOXYzine PAMOATE 50 MG CAPSULE (FP) PO PRN (00:24)
[2019-10-03] MEDS: CLINDAMYCIN PHOSPHATE 1% TOPICAL GEL 30 GM TUBE TP SCH ×2 (10:24→21:37)
[2019-10-03] MEDS: CHLORHEXIDINE GLUCONATE TP SCH (10:24)
[2019-10-03] MEDS: MINERAL OIL/PETROLAT/WATER TOPICAL CREAM 113 GM JAR TP SCH ×2 (10:25→21:37)
[2019-10-03] MEDS: DIVALPROEX SODIUM 500 MG TABLET E.C. PO SCH ×2 (10:26→21:36)
[2019-10-03] MEDS: PRENATAL VITAMINS W/ FOLIC ACID TABLET (FP) PO SCH (10:26)
[2019-10-03] MEDS: TOLNAFTATE 1% CREAM 15 GM TUBE TP SCH ×2 (10:26→21:36)
[2019-10-03] MEDS: NICOTINE 21 MG/24 HOURS TOPICAL PATCH TD SCH (10:26)
[2019-10-03] MEDS: METHOCARBAMOL 500 MG TABLET PO PRN ×2 (10:28→21:38)
[2019-10-03] MEDS: MAG HYDROX/AL HYDROX/SIMETH 30 ML UNIT-DOSE CUP PO PRN ×2 (10:29→17:56)
[2019-10-03] MEDS: IBUPROFEN 600 MG TABLET (FP) PO PRN ×2 (13:10→21:36)
[2019-10-03] MEDS: QUEtiapine FUMARATE 300 MG TABLET PO SCH (21:36)
[2019-10-03] MEDS: MELATONIN 5 MG TABLETS PO PRN (21:37)
[2019-10-03] MEDS: THIAMINE HCL 100 MG TABLET (FP) PO SCH (21:37)
[2019-10-04] MEDS: MAG HYDROX/AL HYDROX/SIMETH 30 ML UNIT-DOSE CUP PO PRN ×2 (00:37→10:20)
[2019-10-04] MEDS: CLINDAMYCIN PHOSPHATE 1% TOPICAL GEL 30 GM TUBE TP SCH ×2 (10:13→21:55)
[2019-10-04] MEDS: DIVALPROEX SODIUM 500 MG TABLET E.C. PO SCH ×2 (10:13→21:37)
[2019-10-04] MEDS: MINERAL OIL/PETROLAT/WATER TOPICAL CREAM 113 GM JAR TP SCH ×2 (10:14→21:55)
[2019-10-04] MEDS: PRENATAL VITAMINS W/ FOLIC ACID TABLET (FP) PO SCH (10:15)
[2019-10-04] MEDS: NICOTINE 21 MG/24 HOURS TOPICAL PATCH TD SCH (10:15)
[2019-10-04] MEDS: TOLNAFTATE 1% CREAM 15 GM TUBE TP SCH ×2 (10:15→21:37)
[2019-10-04] MEDS: CHLORHEXIDINE GLUCONATE TP SCH (10:17)
[2019-10-04] MEDS: IBUPROFEN 600 MG TABLET (FP) PO PRN ×2 (10:19→21:36)
[2019-10-04] MEDS: METHOCARBAMOL 500 MG TABLET PO PRN (10:19)
[2019-10-04] MEDS ORDERED: ONDANSETRON *ODT* 4 MG TABLET SL PRN (11:13)
[2019-10-04] MEDS ORDERED: FAMOTIDINE 20 MG TABLET PO ONE (15:33)
[2019-10-04] MEDS: THIAMINE HCL 100 MG TABLET (FP) PO SCH (21:37)
[2019-10-04] MEDS: QUEtiapine FUMARATE 300 MG TABLET PO SCH (21:37)
[2019-10-04] MEDS: FAMOTIDINE 20 MG TABLET PO SCH (21:37)
[2019-10-05] MEDS: MAG HYDROX/AL HYDROX/SIMETH 30 ML UNIT-DOSE CUP PO PRN (02:46)
[2019-10-05] MEDS: NICOTINE 21 MG/24 HOURS TOPICAL PATCH TD SCH (10:24)
[2019-10-05] MEDS: DIVALPROEX SODIUM 500 MG TABLET E.C. PO SCH ×2 (10:24→21:25)
[2019-10-05] MEDS: FAMOTIDINE 20 MG TABLET PO SCH ×2 (10:24→21:26)
[2019-10-05] MEDS: METHOCARBAMOL 500 MG TABLET PO PRN ×2 (10:25→21:26)
[2019-10-05] MEDS: CHLORHEXIDINE GLUCONATE TP SCH (10:25)
[2019-10-05] MEDS: IBUPROFEN 600 MG TABLET (FP) PO PRN ×2 (10:26→21:26)
[2019-10-05] MEDS: PRENATAL VITAMINS W/ FOLIC ACID TABLET (FP) PO SCH (10:28)
[2019-10-05] MEDS: CLINDAMYCIN PHOSPHATE 1% TOPICAL GEL 30 GM TUBE TP SCH ×2 (10:28→21:27)
[2019-10-05] MEDS: TOLNAFTATE 1% CREAM 15 GM TUBE TP SCH ×2 (10:28→21:27)
[2019-10-05] MEDS: MINERAL OIL/PETROLAT/WATER TOPICAL CREAM 113 GM JAR TP SCH ×2 (10:28→21:27)
[2019-10-05] MEDS: QUEtiapine FUMARATE 300 MG TABLET PO SCH (21:25)
[2019-10-05] MEDS: THIAMINE HCL 100 MG TABLET (FP) PO SCH (21:27)
[2019-10-06] MEDS: MAG HYDROX/AL HYDROX/SIMETH 30 ML UNIT-DOSE CUP PO PRN ×2 (01:35→16:37)
[2019-10-06] MEDS: PRENATAL VITAMINS W/ FOLIC ACID TABLET (FP) PO SCH (10:44)
[2019-10-06] MEDS: NICOTINE 21 MG/24 HOURS TOPICAL PATCH TD SCH (10:44)
[2019-10-06] MEDS: FAMOTIDINE 20 MG TABLET PO SCH ×2 (10:44→21:14)
[2019-10-06] MEDS: DIVALPROEX SODIUM 500 MG TABLET E.C. PO SCH ×2 (10:44→21:14)
[2019-10-06] MEDS: CHLORHEXIDINE GLUCONATE TP SCH (10:45)
[2019-10-06] MEDS: METHOCARBAMOL 500 MG TABLET PO PRN ×2 (10:46→21:14)
[2019-10-06] MEDS: IBUPROFEN 600 MG TABLET (FP) PO PRN ×2 (10:46→21:15)
[2019-10-06] MEDS: CLINDAMYCIN PHOSPHATE 1% TOPICAL GEL 30 GM TUBE TP SCH ×2 (10:48→21:16)
[2019-10-06] MEDS: TOLNAFTATE 1% CREAM 15 GM TUBE TP SCH ×2 (10:49→21:16)
[2019-10-06] MEDS: MINERAL OIL/PETROLAT/WATER TOPICAL CREAM 113 GM JAR TP SCH ×2 (10:49→21:16)
[2019-10-06] MEDS: QUEtiapine FUMARATE 300 MG TABLET PO SCH (21:16)
[2019-10-06] MEDS: THIAMINE HCL 100 MG TABLET (FP) PO SCH (21:16)
[2019-10-07] MEDS: MAG HYDROX/AL HYDROX/SIMETH 30 ML UNIT-DOSE CUP PO PRN ×2 (00:51→07:27)
[2019-10-07] MEDS: MINERAL OIL/PETROLAT/WATER TOPICAL CREAM 113 GM JAR TP SCH ×2 (10:54→21:26)
[2019-10-07] MEDS: NICOTINE 21 MG/24 HOURS TOPICAL PATCH TD SCH (10:54)
[2019-10-07] MEDS: DIVALPROEX SODIUM 500 MG TABLET E.C. PO SCH ×2 (10:55→21:23)
[2019-10-07] MEDS: PRENATAL VITAMINS W/ FOLIC ACID TABLET (FP) PO SCH (10:56)
[2019-10-07] MEDS: IBUPROFEN 600 MG TABLET (FP) PO PRN ×2 (10:58→21:24)
[2019-10-07] MEDS: METHOCARBAMOL 500 MG TABLET PO PRN ×2 (10:58→21:24)
[2019-10-07] MEDS: FAMOTIDINE 20 MG TABLET PO SCH ×2 (10:59→21:23)
[2019-10-07] MEDS: CHLORHEXIDINE GLUCONATE TP SCH (11:00)
[2019-10-07] MEDS: CLINDAMYCIN PHOSPHATE 1% TOPICAL GEL 30 GM TUBE TP SCH ×2 (11:00→21:26)
[2019-10-07] MEDS: TOLNAFTATE 1% CREAM 15 GM TUBE TP SCH ×2 (11:00→21:26)
--- NOTE | 2019-10-07 13:08 | PN ---
[facility] Progress Note Note: c/o constipation x 5 days, heartburn not relieved by pepcid. Vital Signs - 24 hr 10/07/19 10/07/19 10/07/19 00:30 03:30 07:15 Temperature 97.9 F Pulse Rate 86 Respiratory 18 18 18 Rate Blood Pressure 108/70 Laboratory Tests 09/24/19 09/24/19 09/24/19 08:20 11:40 11:40 WBC 6.2 RBC 4.13 Hgb 11.8 Hct 36.4 D MCV 88.2 MCH 28.6 D MCHC 32.5 RDW 18.6 H Plt Count 260 D MPV 9.7 D Sodium 137 Potassium 4.5 Chloride 106 Carbon Dioxide 25 Anion Gap 7 L BUN 18.9 H Creatinine 0.6 Est GFR (CKD-EPI)AfAm 133.04 Est GFR (CKD-EPI)NonAf 114.79 POC Glucometer Random Glucose 101 Calcium 8.9 Total Bilirubin 0.1 L AST 17 ALT 32 Alkaline Phosphatase 75 Total Protein 7.3 Albumin 3.1 L Urine Color Yellow Urine Appearance Clear Urine pH >= 9.0 H D Ur Specific [place] 1.014 Urine Protein Negative Urine Glucose (UA) Negative Urine Ketones Negative Urine Blood Negative Urine Nitrite Negative Urine Bilirubin Negative Urine Urobilinogen 0.2 Ur Leukocyte Esterase Negative Valproic Acid RPR Titer 09/24/19 09/24/19 09/25/19 11:40 11:40 06:17 WBC RBC Hgb Hct MCV MCH MCHC RDW Plt Count MPV Sodium Potassium Chloride Carbon Dioxide Anion Gap BUN Creatinine Est GFR (CKD-EPI)AfAm Est GFR (CKD-EPI)NonAf POC Glucometer 84 Random Glucose Calcium Total Bilirubin AST ALT Alkaline Phosphatase Total Protein Albumin Urine Color Urine Appearance Urine pH Ur Specific [place] Urine Protein Urine Glucose (UA) Urine Ketones Urine Blood Urine Nitrite Urine Bilirubin Urine Urobilinogen Ur Leukocyte Esterase Valproic Acid 25.9 L RPR Titer Nonreactive A/P constipation Fleet enema x 1 now colace 100 mg po bid
[2019-10-07] MEDS ORDERED: SODIUM PHOSPHATE/NA BIPHOS 133 ML ENEMA PR ONE (13:30)
[2019-10-07] MEDS: DOCUSATE SODIUM 100 MG CAPSULE (FP) PO SCH (21:23)
[2019-10-07] MEDS: QUEtiapine FUMARATE 300 MG TABLET PO SCH (21:23)
[2019-10-07] MEDS: THIAMINE HCL 100 MG TABLET (FP) PO SCH (21:26)
[2019-10-08] MEDS: MAG HYDROX/AL HYDROX/SIMETH 30 ML UNIT-DOSE CUP PO PRN (06:45)
[2019-10-08] MEDS: FAMOTIDINE 20 MG TABLET PO SCH ×2 (10:43→21:16)
[2019-10-08] MEDS: DOCUSATE SODIUM 100 MG CAPSULE (FP) PO SCH ×2 (10:43→21:16)
[2019-10-08] MEDS: PRENATAL VITAMINS W/ FOLIC ACID TABLET (FP) PO SCH (10:43)
[2019-10-08] MEDS: DIVALPROEX SODIUM 500 MG TABLET E.C. PO SCH ×2 (10:43→21:16)
[2019-10-08] MEDS: CHLORHEXIDINE GLUCONATE TP SCH (10:44)
[2019-10-08] MEDS: MINERAL OIL/PETROLAT/WATER TOPICAL CREAM 113 GM JAR TP SCH ×2 (10:44→21:17)
[2019-10-08] MEDS: NICOTINE 21 MG/24 HOURS TOPICAL PATCH TD SCH (10:45)
[2019-10-08] MEDS: CLINDAMYCIN PHOSPHATE 1% TOPICAL GEL 30 GM TUBE TP SCH ×2 (10:45→21:17)
[2019-10-08] MEDS: TOLNAFTATE 1% CREAM 15 GM TUBE TP SCH ×2 (10:45→21:17)
[2019-10-08] MEDS: hydrOXYzine PAMOATE 50 MG CAPSULE (FP) PO PRN ×2 (10:46→15:16)
[2019-10-08] MEDS ORDERED: SODIUM PHOSPHATE/NA BIPHOS 133 ML ENEMA PR ONE (14:00)
[2019-10-08] MEDS: METHOCARBAMOL 500 MG TABLET PO PRN ×2 (15:16→21:18)
[2019-10-08] MEDS: ACETAMINOPHEN 325 MG TABLET (FP) PO PRN (15:17)
[2019-10-08] MEDS: QUEtiapine FUMARATE 300 MG TABLET PO SCH (21:16)
[2019-10-08] MEDS: THIAMINE HCL 100 MG TABLET (FP) PO SCH (21:17)
[2019-10-09] MEDS: PRENATAL VITAMINS W/ FOLIC ACID TABLET (FP) PO SCH (10:39)
[2019-10-09] MEDS: DIVALPROEX SODIUM 500 MG TABLET E.C. PO SCH ×2 (10:39→21:04)
[2019-10-09] MEDS: DOCUSATE SODIUM 100 MG CAPSULE (FP) PO SCH ×2 (10:39→21:04)
[2019-10-09] MEDS: FAMOTIDINE 20 MG TABLET PO SCH ×2 (10:40→21:04)
[2019-10-09] MEDS: IBUPROFEN 600 MG TABLET (FP) PO PRN (10:42)
[2019-10-09] MEDS: METHOCARBAMOL 500 MG TABLET PO PRN ×2 (10:42→21:04)
[2019-10-09] MEDS: NICOTINE 21 MG/24 HOURS TOPICAL PATCH TD SCH (11:57)
[2019-10-09] MEDS: TOLNAFTATE 1% CREAM 15 GM TUBE TP SCH ×2 (11:57→21:05)
[2019-10-09] MEDS: CHLORHEXIDINE GLUCONATE TP SCH (11:59)
[2019-10-09] MEDS: CLINDAMYCIN PHOSPHATE 1% TOPICAL GEL 30 GM TUBE TP SCH ×2 (11:59→21:04)
[2019-10-09] MEDS: MINERAL OIL/PETROLAT/WATER TOPICAL CREAM 113 GM JAR TP SCH ×2 (12:00→21:04)
[2019-10-09] MEDS: MAG HYDROX/AL HYDROX/SIMETH 30 ML UNIT-DOSE CUP PO PRN (15:43)
[2019-10-09] MEDS: THIAMINE HCL 100 MG TABLET (FP) PO SCH (21:05)
[2019-10-09] MEDS: QUEtiapine FUMARATE 300 MG TABLET PO SCH (21:05)
[2019-10-10] MEDS: MAG HYDROX/AL HYDROX/SIMETH 30 ML UNIT-DOSE CUP PO PRN ×2 (07:13→16:52)
[2019-10-10] MEDS: DOCUSATE SODIUM 100 MG CAPSULE (FP) PO SCH ×2 (09:56→21:05)
[2019-10-10] MEDS: DIVALPROEX SODIUM 500 MG TABLET E.C. PO SCH ×2 (09:56→21:06)
[2019-10-10] MEDS: CLINDAMYCIN PHOSPHATE 1% TOPICAL GEL 30 GM TUBE TP SCH ×2 (09:56→21:07)
[2019-10-10] MEDS: NICOTINE 21 MG/24 HOURS TOPICAL PATCH TD SCH (09:56)
[2019-10-10] MEDS: FAMOTIDINE 20 MG TABLET PO SCH ×2 (09:56→21:06)
[2019-10-10] MEDS: PRENATAL VITAMINS W/ FOLIC ACID TABLET (FP) PO SCH (09:56)
[2019-10-10] MEDS: CHLORHEXIDINE GLUCONATE TP SCH (09:57)
[2019-10-10] MEDS: TOLNAFTATE 1% CREAM 15 GM TUBE TP SCH ×2 (09:58→21:08)
[2019-10-10] MEDS: METHOCARBAMOL 500 MG TABLET PO PRN ×2 (09:59→21:06)
[2019-10-10] MEDS: IBUPROFEN 600 MG TABLET (FP) PO PRN ×2 (09:59→21:06)
[2019-10-10] MEDS: MINERAL OIL/PETROLAT/WATER TOPICAL CREAM 113 GM JAR TP SCH ×2 (11:53→21:07)
[2019-10-10] MEDS: QUEtiapine FUMARATE 300 MG TABLET PO SCH (21:06)
[2019-10-10] MEDS: THIAMINE HCL 100 MG TABLET (FP) PO SCH (22:39)
[2019-10-11] MEDS: MAG HYDROX/AL HYDROX/SIMETH 30 ML UNIT-DOSE CUP PO PRN ×2 (07:27→16:52)
[2019-10-11] MEDS: MINERAL OIL/PETROLAT/WATER TOPICAL CREAM 113 GM JAR TP SCH ×2 (10:03→21:08)
[2019-10-11] MEDS: FAMOTIDINE 20 MG TABLET PO SCH ×2 (10:04→21:06)
[2019-10-11] MEDS: PRENATAL VITAMINS W/ FOLIC ACID TABLET (FP) PO SCH (10:04)
[2019-10-11] MEDS: DIVALPROEX SODIUM 500 MG TABLET E.C. PO SCH ×2 (10:04→21:06)
[2019-10-11] MEDS: DOCUSATE SODIUM 100 MG CAPSULE (FP) PO SCH ×2 (10:04→21:06)
[2019-10-11] MEDS: CLINDAMYCIN PHOSPHATE 1% TOPICAL GEL 30 GM TUBE TP SCH ×2 (10:04→21:08)
[2019-10-11] MEDS: TOLNAFTATE 1% CREAM 15 GM TUBE TP SCH ×2 (10:04→21:08)
[2019-10-11] MEDS: NICOTINE 21 MG/24 HOURS TOPICAL PATCH TD SCH (10:05)
[2019-10-11] MEDS: IBUPROFEN 600 MG TABLET (FP) PO PRN ×2 (10:08→21:07)
[2019-10-11] MEDS: METHOCARBAMOL 500 MG TABLET PO PRN ×2 (10:08→21:07)
[2019-10-11] MEDS: CHLORHEXIDINE GLUCONATE TP SCH (10:10)
[2019-10-11] MEDS: ACETAMINOPHEN 325 MG TABLET (FP) PO PRN (16:03)
[2019-10-11] MEDS: QUEtiapine FUMARATE 300 MG TABLET PO SCH (21:06)
[2019-10-11] MEDS: THIAMINE HCL 100 MG TABLET (FP) PO SCH (21:09)
[2019-10-12] MEDS: hydrOXYzine PAMOATE 50 MG CAPSULE (FP) PO PRN (02:05)
[2019-10-12] MEDS: DOCUSATE SODIUM 100 MG CAPSULE (FP) PO SCH ×2 (09:24→21:23)
[2019-10-12] MEDS: FAMOTIDINE 20 MG TABLET PO SCH ×2 (09:24→21:23)
[2019-10-12] MEDS: PRENATAL VITAMINS W/ FOLIC ACID TABLET (FP) PO SCH (09:25)
[2019-10-12] MEDS: CHLORHEXIDINE GLUCONATE TP SCH (09:25)
[2019-10-12] MEDS: MINERAL OIL/PETROLAT/WATER TOPICAL CREAM 113 GM JAR TP SCH ×2 (09:25→23:15)
[2019-10-12] MEDS: TOLNAFTATE 1% CREAM 15 GM TUBE TP SCH ×2 (09:25→23:15)
[2019-10-12] MEDS: NICOTINE 21 MG/24 HOURS TOPICAL PATCH TD SCH (09:25)
[2019-10-12] MEDS: CLINDAMYCIN PHOSPHATE 1% TOPICAL GEL 30 GM TUBE TP SCH ×2 (09:25→21:23)
[2019-10-12] MEDS: DIVALPROEX SODIUM 500 MG TABLET E.C. PO SCH ×2 (09:25→21:23)
[2019-10-12] MEDS: METHOCARBAMOL 500 MG TABLET PO PRN ×2 (09:26→21:26)
[2019-10-12] MEDS: IBUPROFEN 600 MG TABLET (FP) PO PRN ×2 (09:26→21:26)
[2019-10-12] MEDS: MAG HYDROX/AL HYDROX/SIMETH 30 ML UNIT-DOSE CUP PO PRN (19:55)
[2019-10-12] MEDS: THIAMINE HCL 100 MG TABLET (FP) PO SCH (21:23)
[2019-10-12] MEDS: QUEtiapine FUMARATE 300 MG TABLET PO SCH (21:24)
[2019-10-13] MEDS: FAMOTIDINE 20 MG TABLET PO SCH ×2 (09:42→21:08)
[2019-10-13] MEDS: DIVALPROEX SODIUM 500 MG TABLET E.C. PO SCH ×2 (09:42→21:08)
[2019-10-13] MEDS: PRENATAL VITAMINS W/ FOLIC ACID TABLET (FP) PO SCH (09:42)
[2019-10-13] MEDS: DOCUSATE SODIUM 100 MG CAPSULE (FP) PO SCH ×2 (09:42→21:07)
[2019-10-13] MEDS: NICOTINE 21 MG/24 HOURS TOPICAL PATCH TD SCH (09:44)
[2019-10-13] MEDS: MINERAL OIL/PETROLAT/WATER TOPICAL CREAM 113 GM JAR TP SCH ×2 (09:44→21:08)
[2019-10-13] MEDS: CLINDAMYCIN PHOSPHATE 1% TOPICAL GEL 30 GM TUBE TP SCH ×2 (09:44→21:07)
[2019-10-13] MEDS: TOLNAFTATE 1% CREAM 15 GM TUBE TP SCH ×2 (09:44→21:08)
[2019-10-13] MEDS: CHLORHEXIDINE GLUCONATE TP SCH (09:44)
[2019-10-13] MEDS: METHOCARBAMOL 500 MG TABLET PO PRN (09:46)
[2019-10-13] MEDS: THIAMINE HCL 100 MG TABLET (FP) PO SCH (21:09)
[2019-10-13] MEDS: QUEtiapine FUMARATE 300 MG TABLET PO SCH (21:09)
[2019-10-13] MEDS: IBUPROFEN 600 MG TABLET (FP) PO PRN (21:10)
[2019-10-14] MEDS ORDERED: PANTOPRAZOLE 40 MG TABLET (FP) PO ONE (00:36)
[2019-10-14] MEDS ORDERED: ALBUTEROL SO4 0.083% IH SOL 2.5 MG/3 ML VIAL.NEB. NEB ONE (00:36)
--- NOTE | 2019-10-14 00:45 | PN ---
[facility] Progress Note Note: ASKED TO SEE CLIENT FOR SOB. CLIENT STATES HE WAS LYING DOWN AND WOKE UP COUGHING WITH BURNING PAIN TO HIS CHEST AND SOB. DENIES FEVER, CHILLS, N/V/, NUMBNESS OR RADIATING PAIN. CLIENT REPORTS ACID REFLUX AND HAS BEEN TAKING [place] PRN. Vital Signs Temperature 97.4 F L 10/13/19 07:27 Pulse Rate 77 10/13/19 07:27 Respiratory Rate 18 10/13/19 07:27 Blood Pressure 104/52 L 10/13/19 07:27 O2 Sat by Pulse Oximetry (%) 02 SAT RA 98% EKG- NSR, NL ECG CLIENT SEEN SEATED IN CHAIR COUGHING, A/O X3 CV RRR LUNGS- CTAB + COUGHING WITH INSPIRATION A- GERD P- PROTONIX 40 MG NOW PROTONIX 20 MG DAILY CXR ORDERED. NO PPD/CXR NOTED. REPORTS HX/O PPD ALLERGY ALBUTEROL NEB X1 CONTINUE TO MONITOR FOR WORSENING SX'S EKG
[2019-10-14] MEDS ORDERED: PANTOPRAZOLE 20 MG TABLET (FP) PO SCH (10:00)
[2019-10-14] MEDS: FAMOTIDINE 20 MG TABLET PO SCH ×2 (10:32→21:05)
[2019-10-14] MEDS: DIVALPROEX SODIUM 500 MG TABLET E.C. PO SCH ×2 (10:32→21:05)
[2019-10-14] MEDS: PRENATAL VITAMINS W/ FOLIC ACID TABLET (FP) PO SCH (10:33)
[2019-10-14] MEDS: MINERAL OIL/PETROLAT/WATER TOPICAL CREAM 113 GM JAR TP SCH ×2 (10:33→21:07)
[2019-10-14] MEDS: NICOTINE 21 MG/24 HOURS TOPICAL PATCH TD SCH (10:33)
[2019-10-14] MEDS: TOLNAFTATE 1% CREAM 15 GM TUBE TP SCH ×2 (10:34→21:07)
[2019-10-14] MEDS: DOCUSATE SODIUM 100 MG CAPSULE (FP) PO SCH ×2 (10:36→21:05)
[2019-10-14] MEDS: CHLORHEXIDINE GLUCONATE TP SCH (10:36)
[2019-10-14] MEDS: CLINDAMYCIN PHOSPHATE 1% TOPICAL GEL 30 GM TUBE TP SCH ×2 (10:36→21:07)
--- NOTE | 2019-10-14 10:44 | PN ---
[facility] Progress Note Note: Saw Mr Summers this morning , a pt with a long hx of GERD. Has been taking Pepcid with effect. Stated he had a bad reflux episode while sleeping last night. Seen by provider Librado Cadet and Protonix ordered. Asked pt which he would prefer that worked best for him. Pt wants to stay on Pepcid. Vital Signs - 24 hr 10/14/19 06:49 Temperature 98.0 F Pulse Rate 74 Respiratory 18 Rate Blood Pressure 102/67 Alert o x 3 no sob nad oob ambulating with steady gait abdomen:soft,+bs, nt, +fatty A/P GERD, uncontrolled Pt was seen this morning by the apprentice funeral director and educated on food choices that aggravate GERD. Reading material was given to patient. D/C motrin Lidocaine patch apply as directed.
[2019-10-14] MEDS ORDERED: IBUPROFEN 600 MG TABLET (FP) PO PRN (12:26)
[2019-10-14] MEDS ORDERED: METHYL SALICYLATE/MENTHOL OINT 30 GM TUBE TP PRN (12:27)
[2019-10-14] MEDS: LIDOCAINE 5% TOPICAL PATCH TP SCH (14:45)
[2019-10-14] MEDS: METHOCARBAMOL 500 MG TABLET PO PRN (21:05)
[2019-10-14] MEDS: QUEtiapine FUMARATE 300 MG TABLET PO SCH (21:06)
[2019-10-14] MEDS: LIDOCAINE PATCH REMOVAL MC SCH (21:07)
[2019-10-14] MEDS: THIAMINE HCL 100 MG TABLET (FP) PO SCH (21:07)
[2019-10-14] MEDS: MAG HYDROX/AL HYDROX/SIMETH 30 ML UNIT-DOSE CUP PO PRN (22:54)
[2019-10-15] MEDS: DIVALPROEX SODIUM 500 MG TABLET E.C. PO SCH ×2 (10:13→21:02)
[2019-10-15] MEDS: FAMOTIDINE 20 MG TABLET PO SCH ×2 (10:14→21:02)
[2019-10-15] MEDS: PRENATAL VITAMINS W/ FOLIC ACID TABLET (FP) PO SCH (10:14)
[2019-10-15] MEDS: LIDOCAINE 5% TOPICAL PATCH TP SCH (10:14)
[2019-10-15] MEDS: DOCUSATE SODIUM 100 MG CAPSULE (FP) PO SCH ×2 (10:14→21:02)
[2019-10-15] MEDS: METHOCARBAMOL 500 MG TABLET PO PRN ×2 (10:16→21:02)
[2019-10-15] MEDS: ACETAMINOPHEN 325 MG TABLET (FP) PO PRN (10:16)
[2019-10-15] MEDS: TOLNAFTATE 1% CREAM 15 GM TUBE TP SCH ×2 (10:18→21:05)
[2019-10-15] MEDS: MINERAL OIL/PETROLAT/WATER TOPICAL CREAM 113 GM JAR TP SCH ×2 (10:18→21:05)
[2019-10-15] MEDS: NICOTINE 21 MG/24 HOURS TOPICAL PATCH TD SCH (10:18)
[2019-10-15] MEDS: CHLORHEXIDINE GLUCONATE TP SCH (10:33)
[2019-10-15] MEDS: CLINDAMYCIN PHOSPHATE 1% TOPICAL GEL 30 GM TUBE TP SCH ×2 (10:33→21:05)
[2019-10-15] MEDS: MAG HYDROX/AL HYDROX/SIMETH 30 ML UNIT-DOSE CUP PO PRN (16:46)
[2019-10-15] MEDS: MELATONIN 5 MG TABLETS PO PRN (21:02)
[2019-10-15] MEDS: QUEtiapine FUMARATE 300 MG TABLET PO SCH (21:04)
[2019-10-15] MEDS: THIAMINE HCL 100 MG TABLET (FP) PO SCH (21:05)
[2019-10-15] MEDS: LIDOCAINE PATCH REMOVAL MC SCH (21:05)
[2019-10-16] MEDS: MAG HYDROX/AL HYDROX/SIMETH 30 ML UNIT-DOSE CUP PO PRN (00:04)
[2019-10-16] MEDS: LIDOCAINE 5% TOPICAL PATCH TP SCH (10:10)
[2019-10-16] MEDS: FAMOTIDINE 20 MG TABLET PO SCH ×2 (10:10→21:08)
[2019-10-16] MEDS: DOCUSATE SODIUM 100 MG CAPSULE (FP) PO SCH ×2 (10:10→21:07)
[2019-10-16] MEDS: PRENATAL VITAMINS W/ FOLIC ACID TABLET (FP) PO SCH (10:10)
[2019-10-16] MEDS: DIVALPROEX SODIUM 500 MG TABLET E.C. PO SCH ×2 (10:10→21:07)
[2019-10-16] MEDS: MINERAL OIL/PETROLAT/WATER TOPICAL CREAM 113 GM JAR TP SCH ×2 (10:11→21:11)
[2019-10-16] MEDS: CHLORHEXIDINE GLUCONATE TP SCH (10:11)
[2019-10-16] MEDS: CLINDAMYCIN PHOSPHATE 1% TOPICAL GEL 30 GM TUBE TP SCH ×2 (10:11→21:08)
[2019-10-16] MEDS: NICOTINE 21 MG/24 HOURS TOPICAL PATCH TD SCH (10:11)
[2019-10-16] MEDS: TOLNAFTATE 1% CREAM 15 GM TUBE TP SCH ×2 (10:12→21:11)
[2019-10-16] MEDS: METHOCARBAMOL 500 MG TABLET PO PRN (10:41)
[2019-10-16] MEDS: ACETAMINOPHEN 325 MG TABLET (FP) PO PRN (10:41)
[2019-10-16] MEDS: hydrOXYzine PAMOATE 50 MG CAPSULE (FP) PO PRN (10:43)
[2019-10-16] MEDS: QUEtiapine FUMARATE 300 MG TABLET PO SCH (21:07)
[2019-10-16] MEDS: MELATONIN 5 MG TABLETS PO PRN (21:07)
[2019-10-16] MEDS: LIDOCAINE PATCH REMOVAL MC SCH (21:11)
[2019-10-16] MEDS: THIAMINE HCL 100 MG TABLET (FP) PO SCH (21:11)
[2019-10-17] MEDS: DIVALPROEX SODIUM 500 MG TABLET E.C. PO SCH ×2 (10:06→21:11)
[2019-10-17] MEDS: DOCUSATE SODIUM 100 MG CAPSULE (FP) PO SCH ×2 (10:06→21:12)
[2019-10-17] MEDS: PRENATAL VITAMINS W/ FOLIC ACID TABLET (FP) PO SCH (10:06)
[2019-10-17] MEDS: FAMOTIDINE 20 MG TABLET PO SCH ×2 (10:06→21:12)
[2019-10-17] MEDS: ACETAMINOPHEN 325 MG TABLET (FP) PO PRN ×2 (10:07→20:02)
[2019-10-17] MEDS: hydrOXYzine PAMOATE 50 MG CAPSULE (FP) PO PRN ×2 (10:07→21:12)
[2019-10-17] MEDS: LIDOCAINE 5% TOPICAL PATCH TP SCH (10:08)
[2019-10-17] MEDS: NICOTINE 21 MG/24 HOURS TOPICAL PATCH TD SCH (10:09)
[2019-10-17] MEDS: CLINDAMYCIN PHOSPHATE 1% TOPICAL GEL 30 GM TUBE TP SCH ×2 (10:09→21:13)
[2019-10-17] MEDS: CHLORHEXIDINE GLUCONATE TP SCH (10:09)
[2019-10-17] MEDS: TOLNAFTATE 1% CREAM 15 GM TUBE TP SCH ×2 (10:09→21:13)
[2019-10-17] MEDS: MINERAL OIL/PETROLAT/WATER TOPICAL CREAM 113 GM JAR TP SCH ×2 (10:09→21:13)
--- NOTE | 2019-10-17 12:00 | EKG ---
Test Reason : Blood Pressure : / mmHG Vent. Rate : 077 BPM Atrial Rate : 077 BPM P-R Int : 166 ms QRS Dur : 100 ms QT Int : 390 ms P-R-T Axes : 047 017 044 degrees QTc Int : 441 ms NORMAL SINUS RHYTHM NORMAL ECG WHEN COMPARED WITH ECG OF 24-SEP-2019 01:08, NO SIGNIFICANT CHANGE WAS FOUND Confirmed by GUNNER DRAKE MD ([id number]) on 10/17/2019 11:59:57 AM Referred By: Confirmed By:GUNNER DRAKE MD
[2019-10-17] MEDS: METHOCARBAMOL 500 MG TABLET PO PRN (21:11)
[2019-10-17] MEDS: MELATONIN 5 MG TABLETS PO PRN (21:12)
[2019-10-17] MEDS: THIAMINE HCL 100 MG TABLET (FP) PO SCH (21:12)
[2019-10-17] MEDS: QUEtiapine FUMARATE 300 MG TABLET PO SCH (21:13)
[2019-10-17] MEDS: LIDOCAINE PATCH REMOVAL MC SCH (21:13)
[2019-10-18] MEDS: DIVALPROEX SODIUM 500 MG TABLET E.C. PO SCH ×2 (09:55→22:15)
[2019-10-18] MEDS: FAMOTIDINE 20 MG TABLET PO SCH ×2 (09:55→22:15)
[2019-10-18] MEDS: hydrOXYzine PAMOATE 50 MG CAPSULE (FP) PO PRN (09:55)
[2019-10-18] MEDS: PRENATAL VITAMINS W/ FOLIC ACID TABLET (FP) PO SCH (09:55)
[2019-10-18] MEDS: CHLORHEXIDINE GLUCONATE TP SCH (09:55)
[2019-10-18] MEDS: ACETAMINOPHEN 325 MG TABLET (FP) PO PRN (09:55)
[2019-10-18] MEDS: CLINDAMYCIN PHOSPHATE 1% TOPICAL GEL 30 GM TUBE TP SCH ×2 (09:55→22:15)
[2019-10-18] MEDS: DOCUSATE SODIUM 100 MG CAPSULE (FP) PO SCH ×2 (09:55→22:15)
[2019-10-18] MEDS: TOLNAFTATE 1% CREAM 15 GM TUBE TP SCH ×2 (09:56→22:15)
[2019-10-18] MEDS: MINERAL OIL/PETROLAT/WATER TOPICAL CREAM 113 GM JAR TP SCH ×2 (09:56→22:15)
[2019-10-18] MEDS: METHOCARBAMOL 500 MG TABLET PO PRN (09:56)
[2019-10-18] MEDS: NICOTINE 21 MG/24 HOURS TOPICAL PATCH TD SCH (09:56)
[2019-10-18] MEDS: LIDOCAINE 5% TOPICAL PATCH TP SCH (09:56)
--- NOTE | 2019-10-18 12:09 | DS ---
[facility] Rehab Discharge Summary - [facility] Rehab Discharge Summary Admission Date: 09/23/19 Discharge Date: 10/21/19 - History Present History: Alcohol dependence, Cannabis dependence Additional Comments: Pt is a 54 y/o male with a hx of VELMA-alcohol dependence admitted to rehab from [facility] after discharging from [facility] yesterday for abscess on his buttocks and a 2 weeks hospital stay. Pt is scheduled to be discharged on 10/21. 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 where he has been referred for follow up with housing. Pt has been referred to [facility] for CD aftercare. Pt reports he has no primary care provider but will follow up with referral to [facility] outpatient clinic for primary care. Pertinent Past History: Anemia Seizure disorder Abscess of Coccyx Mood disorder Schizophrenia - Discharge Physical Exam Vital Signs: Vital Signs Temperature 97.2 F L 10/18/19 07:01 Pulse Rate 65 10/18/19 07:01 Respiratory Rate 18 10/18/19 07:01 Blood Pressure 106/69 10/18/19 07:01 O2 Sat by Pulse Oximetry (%) Alert o x 3 nad oob ambulating with steady gait cardiac:s1 s2, rrr lungs:cta,sylvia. abdomen:soft,+bs,nt,++fatty extremities:no edema,full ROM/weight bearing Skin:Re-examined coccyx abscess, clean and healed surrounding skin area, focal area between both upper buttocks covered with dressing(pt reports occasional drainage from focal area of coverage). Pertinent Admission Physical Exam Findings: Laboratory Tests 09/24/19 09/24/19 09/24/19 08:20 11:40 11:40 WBC 6.2 RBC 4.13 Hgb 11.8 Hct 36.4 D MCV 88.2 MCH 28.6 D MCHC 32.5 RDW 18.6 H Plt Count 260 D MPV 9.7 D Sodium 137 Potassium 4.5 Chloride 106 Carbon Dioxide 25 Anion Gap 7 L BUN 18.9 H Creatinine 0.6 Est GFR (CKD-EPI)AfAm 133.04 Est GFR (CKD-EPI)NonAf 114.79 POC Glucometer Random Glucose 101 Calcium 8.9 Total Bilirubin 0.1 L AST 17 ALT 32 Alkaline Phosphatase 75 Total Protein 7.3 Albumin 3.1 L Urine Color Yellow Urine Appearance Clear Urine pH >= 9.0 H D Ur Specific [place] 1.014 Urine Protein Negative Urine Glucose (UA) Negative Urine Ketones Negative Urine Blood Negative Urine Nitrite Negative Urine Bilirubin Negative Urine Urobilinogen 0.2 Ur Leukocyte Esterase Negative Valproic Acid RPR Titer 09/24/19 09/24/19 09/25/19 11:40 11:40 06:17 WBC RBC Hgb Hct MCV MCH MCHC RDW Plt Count MPV Sodium Potassium Chloride Carbon Dioxide Anion Gap BUN Creatinine Est GFR (CKD-EPI)AfAm Est GFR (CKD-EPI)NonAf POC Glucometer 84 Random Glucose Calcium Total Bilirubin AST ALT Alkaline Phosphatase Total Protein Albumin Urine Color Urine Appearance Urine pH Ur Specific [place] Urine Protein Urine Glucose (UA) Urine Ketones Urine Blood Urine Nitrite Urine Bilirubin Urine Urobilinogen Ur Leukocyte Esterase Valproic Acid 25.9 L RPR Titer Nonreactive - Treatment Discharge Condition: Discharge condition good Hospital Course: Rehabilitated safely and responded well CD aftercare referral accepted. - Medication Discharge Medications: Ambulatory Orders Divalproex [Depakote -] 500 mg PO BID 12/06/16 Quetiapine Fumarate [Seroquel -] 300 mg PO HS 12/06/16 Calcium Carb, Citrate/Vit D3 [Calcium + D3 ER Tablet] 1 tab PO DAILY 09/23/19 Folic Acid - 1 mg PO DAILY 09/23/19 Gabapentin 300 mg PO TID 09/23/19 Ibuprofen [Motrin -] 400 mg PO TID 09/23/19 Nicotine Patch [Nicoderm Patch -] 1 patch TD DAILY 09/23/19 Chlorhexidine Gluconate [Hibiclens For Decolonization -] 5 ml TP DAILY #1 bottle 10/18/19 Clindamycin 1% Gel [Cleocin 1% Gel -] 1 applic TP DAILY #1 tube 10/18/19 Divalproex [Depakote -] 500 mg PO BID #60 tablet.ec 10/18/19 Quetiapine Fumarate [Seroquel -] 300 mg PO HS #30 tablet 10/18/19 - Medication-Assisted Treatment (MAT) Medication-Assisted Treatment (MAT): No - Discharge Instructions Diet, activity, other medical instructions: Diet:Regular Activity: oob ad nasreen Other medical instructions:follow up with CD aftercare recommendation as scheduled. Follow up with primary care with [facility] health care assistant clinic within 1 week after discharge. - Diagnosis (1) Alcohol use disorder, severe, in early remission Current Visit: Yes Status: Chronic (2) Nicotine dependence Current Visit: Yes Status: Chronic Qualifiers: Nicotine product type: cigarettes Substance use status: uncomplicated Qualified Code(s): F17.210 - Nicotine dependence, cigarettes, uncomplicated (3) Anemia, unspecified Current Visit: Yes Status: Resolved (4) Injury of left hand Current Visit: Yes Status: Chronic Qualifiers: Encounter type: initial encounter Qualified Code(s): S69.92XA - Unspecified injury of left wrist, hand and finger(s), initial encounter (5) Abscess of coccyx Current Visit: Yes Status: Chronic (6) Seizure disorder Current Visit: Yes Status: Chronic - Follow-up Referral Minutes to complete discharge: 20 - AMA Did Patient Leave Against Medical Advice: No Additional Comments: [facility] Rx for Cleocin TP gel 1% and Hebiclens electronically sent to [facility] 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
--- NOTE | 2019-10-18 15:18 | PN ---
S Progress Note Note: Psychiatric nurse practitioner chronometer tester note: Patient scheduled for discharge on Monday10/21/19. A 30 day prescription of Seroquel 300mg HS + Depakote 500mg BID was electronically sent to [facility], [address] [place] [address].
--- NOTE | 2019-10-18 15:50 | PN ---
S Progress Note Note: Pt may be discharged at 6:30 a.m on Monday10/21/19 if medically stable for discharge to enable him follow up [facility] a [facility]. Pt was seen today, 10/18/19 for Rehab Discharge summary planning.
[2019-10-18] MEDS: QUEtiapine FUMARATE 300 MG TABLET PO SCH (22:15)
[2019-10-18] MEDS: THIAMINE HCL 100 MG TABLET (FP) PO SCH (22:15)
[2019-10-18] MEDS: LIDOCAINE PATCH REMOVAL MC SCH (22:15)
[2019-10-19] MEDS: MAG HYDROX/AL HYDROX/SIMETH 30 ML UNIT-DOSE CUP PO PRN ×2 (01:38→07:27)
[2019-10-19] MEDS: DIVALPROEX SODIUM 500 MG TABLET E.C. PO SCH ×2 (10:29→21:04)
[2019-10-19] MEDS: DOCUSATE SODIUM 100 MG CAPSULE (FP) PO SCH ×2 (10:29→21:04)
[2019-10-19] MEDS: PRENATAL VITAMINS W/ FOLIC ACID TABLET (FP) PO SCH (10:29)
[2019-10-19] MEDS: CLINDAMYCIN PHOSPHATE 1% TOPICAL GEL 30 GM TUBE TP SCH ×2 (10:29→21:04)
[2019-10-19] MEDS: NICOTINE 21 MG/24 HOURS TOPICAL PATCH TD SCH (10:29)
[2019-10-19] MEDS: LIDOCAINE 5% TOPICAL PATCH TP SCH (10:29)
[2019-10-19] MEDS: CHLORHEXIDINE GLUCONATE TP SCH (10:29)
[2019-10-19] MEDS: FAMOTIDINE 20 MG TABLET PO SCH ×2 (10:29→21:04)
[2019-10-19] MEDS: MINERAL OIL/PETROLAT/WATER TOPICAL CREAM 113 GM JAR TP SCH ×2 (10:29→21:05)
[2019-10-19] MEDS: TOLNAFTATE 1% CREAM 15 GM TUBE TP SCH ×2 (10:30→21:05)
[2019-10-19] MEDS: METHOCARBAMOL 500 MG TABLET PO PRN ×2 (10:31→21:03)
[2019-10-19] MEDS: ACETAMINOPHEN 325 MG TABLET (FP) PO PRN (10:31)
[2019-10-19] MEDS: QUEtiapine FUMARATE 300 MG TABLET PO SCH (21:05)
[2019-10-19] MEDS: THIAMINE HCL 100 MG TABLET (FP) PO SCH (21:05)
[2019-10-19] MEDS: LIDOCAINE PATCH REMOVAL MC SCH (21:05)
[2019-10-20 06:47] VITALS: BP 101/68; PULSE 75; TEMP 97.4
[2019-10-20] MEDS: MAG HYDROX/AL HYDROX/SIMETH 30 ML UNIT-DOSE CUP PO PRN (07:13)
[2019-10-20] MEDS: METHOCARBAMOL 500 MG TABLET PO PRN (09:49)
[2019-10-20] MEDS: FAMOTIDINE 20 MG TABLET PO SCH ×2 (09:49→21:05)
[2019-10-20] MEDS: ACETAMINOPHEN 325 MG TABLET (FP) PO PRN ×2 (09:49→21:07)
[2019-10-20] MEDS: DOCUSATE SODIUM 100 MG CAPSULE (FP) PO SCH ×2 (09:50→21:08)
[2019-10-20] MEDS: PRENATAL VITAMINS W/ FOLIC ACID TABLET (FP) PO SCH (09:50)
[2019-10-20] MEDS: DIVALPROEX SODIUM 500 MG TABLET E.C. PO SCH ×2 (09:51→21:05)
[2019-10-20] MEDS: LIDOCAINE 5% TOPICAL PATCH TP SCH (09:51)
[2019-10-20] MEDS: CHLORHEXIDINE GLUCONATE TP SCH (09:51)
[2019-10-20] MEDS: CLINDAMYCIN PHOSPHATE 1% TOPICAL GEL 30 GM TUBE TP SCH ×2 (09:51→21:08)
[2019-10-20] MEDS: NICOTINE 21 MG/24 HOURS TOPICAL PATCH TD SCH (09:51)
[2019-10-20] MEDS: MINERAL OIL/PETROLAT/WATER TOPICAL CREAM 113 GM JAR TP SCH ×2 (09:51→21:08)
[2019-10-20] MEDS: TOLNAFTATE 1% CREAM 15 GM TUBE TP SCH ×2 (09:51→21:09)
[2019-10-20] MEDS: QUEtiapine FUMARATE 300 MG TABLET PO SCH (21:05)
[2019-10-20] MEDS: THIAMINE HCL 100 MG TABLET (FP) PO SCH (21:06)
[2019-10-20] MEDS: LIDOCAINE PATCH REMOVAL MC SCH (21:08)
== END 2019-10-21 06:40 | disposition home or self-care (01) | DRG 772 ==
LOC: YASAS 19:36 → Y5N 23:31
PROVIDERS: ADMIT Neuromusculoskeletal Medicine & OMM; ATTEND Neuromusculoskeletal Medicine & OMM
PROC: HZ42ZZZ Group Counseling for Substance Abuse Treatment, Cognitive-Behavioral (ICD-10-PCS; principal; 2019-09-23)
DX: F10.20 Alcohol dependence, uncomplicated (principal); F17.210 Nicotine dependence, cigarettes, uncomplicated; F25.9 Schizoaffective disorder, unspecified; F39 Unspecified mood [affective] disorder; D64.9 Anemia, unspecified; G40.909 Epilepsy, unspecified, not intractable, without status epilepticus; K21.9 Gastro-esophageal reflux disease without esophagitis; K59.00 Constipation, unspecified; E73.9 Lactose intolerance, unspecified; E66.9 Obesity, unspecified; Z68.31 Body mass index [BMI] 31.0-31.9, adult; R01.1 Cardiac murmur, unspecified; L30.9 Dermatitis, unspecified; L02.31 Cutaneous abscess of buttock; Z91.013 Allergy to seafood; Z91.018 Allergy to other foods; Z91.5 Personal history of self-harm; Z59.0 Homelessness
CPT/HCPCS: 36415; 71046-TC-FY; 80053; 80164; 81003; 82962; 85027; 86593; 93005; 93010; 94640; Q0162

== ENCOUNTER 2020-04-24 18:04 | Inpatient (IN) | payer OTHER ==
[2020-04-24 21:06] VITALS: BMI 26.1
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
[2020-04-24] MEDS ORDERED: NICOTINE POLACRILEX 4 MG GUM BC PRN (22:21)
[2020-04-24] MEDS ORDERED: ACETAMINOPHEN 325 MG TABLET (FP) PO PRN (22:21)
[2020-04-24] MEDS ORDERED: MAG HYDROX/AL HYDROX/SIMETH 30 ML UNIT-DOSE CUP PO PRN (22:21)
[2020-04-24] MEDS ORDERED: MAGNESIUM HYDROX 2400MG/30ML ORAL SUSPENSION 30 ML CUP PO PRN (22:21)
[2020-04-24] MEDS ORDERED: LOPERAMIDE HCL 2 MG CAPSULE PO PRN (22:21)
[2020-04-24] MEDS ORDERED: MAGNESIUM CITRATE 300 ML BOTTLE PO PRN (22:21)
[2020-04-24] MEDS ORDERED: P-EPHED 60MG/TRIPROLIDI 2.5MG TABLET PO PRN (22:21)
[2020-04-24] MEDS ORDERED: guaiFENesin 200 MG/10 ML 10 ML UNIT-DOSE CUPS PO PRN (22:21)
[2020-04-24] MEDS: MELATONIN 5 MG TABLETS PO SCH (23:40)
[2020-04-25] MEDS: VANCOMYCIN 250 MG/5 ML ORAL SOLUTION PO SCH ×5 (00:49→23:07)
[2020-04-25] MEDS: GABAPENTIN 100 MG CAPSULE PO SCH ×3 (06:39→21:15)
[2020-04-25] MEDS: hydrOXYzine PAMOATE 25 MG CAPSULE (FP) PO SCH ×5 (06:39→21:15)
[2020-04-25] MEDS: NICOTINE 21 MG/24 HOURS TOPICAL PATCH TD SCH (09:25)
[2020-04-25] MEDS: PRENATAL VITAMINS W/ FOLIC ACID TABLET (FP) PO SCH (09:25)
[2020-04-25] MEDS: PANTOPRAZOLE 40 MG TABLET PO SCH ×2 (09:26→21:15)
[2020-04-25] MEDS: BUPRENORPHINE/NALOXONE 8 MG/2 MG FILM PACKET SL SCH (09:29)
[2020-04-25 09:37] LABS: HEMATOCRIT 33.2 % (35.4-49); HEMOGLOBIN 10.8 GM/dL (11.7-16.9); MCH 29.9 pg (25.7-33.7); MCHC 32.6 g/dl (32.0-35.9); MEAN CELL VOLUME 91.8 fl (80-96); MEAN PLT VOLUME 9.9 fl (7.5-11.1); PLATELET COUNT 156 K/MM3 (134-434); RBC 3.62 M/mm3 (4.00-5.60); RDW 18.2 % (11.9-15.9); WHITE BLOOD COUNT 7.1 K/mm3 (4.0-10.0)
[2020-04-25 09:52] LABS: ALBUMIN 2.8 g/dl (3.4-5.0); BILIRUBIN,TOTAL 0.4 mg/dL (0.2-1); BLOOD UREA NITROGEN 10.1 mg/dL (7-18); CALCIUM 8.7 mg/dL (8.5-10.1); CREATININE 0.4 mg/dL (0.55-1.3); POTASSIUM 4.2 mmol/L (3.5-5.1); TOT PROT 7.3 g/dl (6.4-8.2)
[2020-04-25 11:32] LABS: SICKLE CELL SCREEN NEGATIVE (NEGATIVE)
[2020-04-25] MEDS ORDERED: PT OWN MED DRAWER 7, Y5N ONE (19:27)
[2020-04-25] MEDS: MELATONIN 5 MG TABLETS PO SCH (21:15)
[2020-04-25] MEDS: THIAMINE HCL 100 MG TABLET (FP) PO SCH (21:15)
[2020-04-25] MEDS: DIVALPROEX SODIUM 250 MG TABLET E.C. PO SCH (21:15)
[2020-04-25] MEDS ORDERED: DIVALPROEX SODIUM 500 MG TABLET E.C. PO SCH (22:00)
[2020-04-26] MEDS: hydrOXYzine PAMOATE 25 MG CAPSULE (FP) PO SCH ×7 (06:45→22:00)
[2020-04-26] MEDS: GABAPENTIN 100 MG CAPSULE PO SCH ×5 (06:45→22:00)
[2020-04-26] MEDS: VANCOMYCIN 250 MG/5 ML ORAL SOLUTION PO SCH ×6 (06:46→23:05)
[2020-04-26] MEDS: PRENATAL VITAMINS W/ FOLIC ACID TABLET (FP) PO SCH (10:08)
[2020-04-26] MEDS: BUPRENORPHINE/NALOXONE 8 MG/2 MG FILM PACKET SL SCH (10:08)
[2020-04-26] MEDS: PANTOPRAZOLE 40 MG TABLET PO SCH ×2 (10:08→22:00)
[2020-04-26] MEDS: DIVALPROEX SODIUM 250 MG TABLET E.C. PO SCH ×2 (10:08→22:00)
[2020-04-26] MEDS: NICOTINE 21 MG/24 HOURS TOPICAL PATCH TD SCH (10:08)
[2020-04-26] MEDS: MELATONIN 5 MG TABLETS PO SCH (22:00)
[2020-04-26] MEDS: THIAMINE HCL 100 MG TABLET (FP) PO SCH (22:00)
[2020-04-27] MEDS: GABAPENTIN 100 MG CAPSULE PO SCH ×3 (06:22→21:27)
[2020-04-27] MEDS: hydrOXYzine PAMOATE 25 MG CAPSULE (FP) PO SCH ×3 (06:22→14:40)
[2020-04-27] MEDS: VANCOMYCIN 250 MG/5 ML ORAL SOLUTION PO SCH ×4 (06:23→23:01)
--- NOTE | 2020-04-27 07:55 | PN ---
[facility] Progress Note Note: PER NURSING NO LBM/ DIARRHEA SINCE ADMISSION. CONTACT ISOLATION DC
[2020-04-27] MEDS: NICOTINE 21 MG/24 HOURS TOPICAL PATCH TD SCH (10:10)
[2020-04-27] MEDS: PRENATAL VITAMINS W/ FOLIC ACID TABLET (FP) PO SCH (10:11)
[2020-04-27] MEDS: PANTOPRAZOLE 40 MG TABLET PO SCH ×2 (10:11→21:27)
[2020-04-27] MEDS: BUPRENORPHINE/NALOXONE 8 MG/2 MG FILM PACKET SL SCH (10:11)
[2020-04-27] MEDS: DIVALPROEX SODIUM 250 MG TABLET E.C. PO SCH ×2 (10:11→21:27)
[2020-04-27 14:40] LABS: EPI CELLS >36 /uL (0-25.1); HYALINE CASTS 4 /uL (0-3.1); PH,URINE 5.5 (5.0-8.0); URINE APPEARANCE CLEAR; URINE BACTERIA 5 /uL (0-1359); URINE BILIRUBIN NEGATIVE (NEGATIVE); URINE COLOR YELLOW; URINE GLUCOSE (UA) NEGATIVE (NEGATIVE); URINE KETONE NEGATIVE (NEGATIVE); URINE LEUK ESTERASE TRACE (NEGATIVE); URINE NITRITE NEGATIVE (NEGATIVE); URINE PROTEIN NEGATIVE (NEGATIVE); URINE RBC 13 /uL (0-23.9); URINE UROBILINOGEN 0.2 mg/dL (0.2-1.0); URINE WBC 16 /uL (0-25.8)
[2020-04-27] MEDS ORDERED: CYCLOBENZAPRINE HCL 10 MG TABLET (FP) PO PRN (14:55)
--- NOTE | 2020-04-27 14:58 | PN ---
[facility] Progress Note Note: PATIENT C/O BACK PAIN DUE TO OLD INJURY AND BUMP TO SIDE OF LEFT THIGH. Vital Signs Temperature 98.1 F 04/27/20 07:05 Pulse Rate 96 H 04/27/20 07:05 Respiratory Rate 18 04/27/20 07:05 Blood Pressure 98/60 04/27/20 07:05 O2 Sat by Pulse Oximetry (%) 95 04/27/20 14:38 Laboratory Tests 04/25/20 04/25/20 04/25/20 07:25 07:25 07:25 WBC 7.1 RBC 3.62 L Hgb 10.8 L Hct 33.2 L MCV 91.8 MCH 29.9 MCHC 32.6 RDW 18.2 H Plt Count 156 D MPV 9.9 Sickle Cell Screen Negative Sodium 136 Potassium 4.2 Chloride 102 Carbon Dioxide 28 Anion Gap 6 L BUN 10.1 Creatinine 0.4 L Est GFR (CKD-EPI)AfAm 157.17 Est GFR (CKD-EPI)NonAf 135.60 Random Glucose 94 Calcium 8.7 Total Bilirubin 0.4 AST 18 ALT 32 Alkaline Phosphatase 72 Total Protein 7.3 Albumin 2.8 L Urine Color Urine Appearance Urine pH Ur Specific [place] Urine Protein Urine Glucose (UA) Urine Ketones Urine Blood Urine Nitrite Urine Bilirubin Urine Urobilinogen Ur Leukocyte Esterase Urine WBC (Auto) Urine RBC (Auto) Urine Casts (Auto) U Epithel Cells (Auto) Urine Bacteria (Auto) Valproic Acid Syphilis Serology Non-reactive 04/25/20 04/27/20 07:25 11:00 WBC RBC Hgb Hct MCV MCH MCHC RDW Plt Count MPV Sickle Cell Screen Sodium Potassium Chloride Carbon Dioxide Anion Gap BUN Creatinine Est GFR (CKD-EPI)AfAm Est GFR (CKD-EPI)NonAf Random Glucose Calcium Total Bilirubin AST ALT Alkaline Phosphatase Total Protein Albumin Urine Color Yellow Urine Appearance Clear Urine pH 5.5 D Ur Specific [place] 1.008 L Urine Protein Negative Urine Glucose (UA) Negative Urine Ketones Negative Urine Blood Negative Urine Nitrite Negative Urine Bilirubin Negative Urine Urobilinogen 0.2 Ur Leukocyte Esterase Trace Urine WBC (Auto) 16 Urine RBC (Auto) 13 Urine Casts (Auto) 4 U Epithel Cells (Auto) >36 Urine Bacteria (Auto) 5 Valproic Acid < 3.0 L Syphilis Serology PE ALERT AND ORIENTED X 3 SKIN WARM AND DRY NECK SUPPLE NO JVD EXT AMB WITH WALKER LEFT LATERAL THIGH WITH ABSCESS, INTACT AND REDDENED, APPROXIMATELY 2.5 INCHES IN OVAL SHAPE. +TENDERNESS. NO DISCHARGE A/P: CHRONIC LBP ABSCESS INFECTION START FLEXERIL 10MG BID PRN FOR LBP KEFLEX 500MG PO EVERY 6 HOURS X 7 DAYS FOR ABSCESS WARM SOAKS TID MONITOR CLINICALLY
[2020-04-27] MEDS: CEPHALEXIN MONOHYDRATE 500 MG CAPSULE (UD) PO SCH ×2 (18:22→23:02)
[2020-04-27] MEDS ORDERED: MASKS NR ONE (18:58)
[2020-04-27] MEDS: hydrOXYzine PAMOATE 25 MG CAPSULE (FP) PO PRN (21:27)
[2020-04-27] MEDS: MELATONIN 5 MG TABLETS PO SCH (21:27)
[2020-04-27] MEDS: THIAMINE HCL 100 MG TABLET (FP) PO SCH (21:27)
[2020-04-28] MEDS: CEPHALEXIN MONOHYDRATE 500 MG CAPSULE (UD) PO SCH ×4 (06:51→23:03)
[2020-04-28] MEDS: GABAPENTIN 100 MG CAPSULE PO SCH ×3 (06:51→23:04)
[2020-04-28] MEDS: VANCOMYCIN 250 MG/5 ML ORAL SOLUTION PO SCH ×4 (06:52→23:04)
[2020-04-28] MEDS: NICOTINE 21 MG/24 HOURS TOPICAL PATCH TD SCH (09:56)
[2020-04-28] MEDS: DIVALPROEX SODIUM 250 MG TABLET E.C. PO SCH ×2 (09:56→23:03)
[2020-04-28] MEDS: BUPRENORPHINE/NALOXONE 8 MG/2 MG FILM PACKET SL SCH (09:57)
[2020-04-28] MEDS: PRENATAL VITAMINS W/ FOLIC ACID TABLET (FP) PO SCH (09:57)
[2020-04-28] MEDS: PANTOPRAZOLE 40 MG TABLET PO SCH ×2 (09:57→23:03)
[2020-04-28] MEDS ORDERED: PT OWN MED DRAWER 7, Y5N ONE (10:04)
--- NOTE | 2020-04-28 15:39 | PN ---
[facility] Progress Note Note: abscess on left thigh,posterior aspect. Reported that it is draining. Vital Signs Period Temp Pulse Resp BP Sys/Prather Pulse Ox Last 24 Hr 97.8 F 80 16-18 101/62 95-98 P/E; General: angry Skin: raised, erythemic area on posterior aspect of left thigh. Tender to palpation. MSK; full weight bearing A/P: Nurse cleansed and applied a clean, dry dressing Will add bacitracin to treatment.
[2020-04-28] MEDS: hydrOXYzine PAMOATE 25 MG CAPSULE (FP) PO PRN (23:03)
[2020-04-28] MEDS: BACITRACIN 0.9 GM PACKET TP SCH (23:04)
[2020-04-28] MEDS: MELATONIN 5 MG TABLETS PO SCH (23:04)
[2020-04-28] MEDS: THIAMINE HCL 100 MG TABLET (FP) PO SCH (23:05)
[2020-04-29] MEDS: GABAPENTIN 100 MG CAPSULE PO SCH ×3 (07:30→23:11)
[2020-04-29] MEDS: CEPHALEXIN MONOHYDRATE 500 MG CAPSULE (UD) PO SCH ×4 (07:31→23:11)
[2020-04-29] MEDS: VANCOMYCIN 250 MG/5 ML ORAL SOLUTION PO SCH ×4 (07:31→23:14)
[2020-04-29] MEDS ORDERED: BACITRACIN 0.9 GM PACKET TP SCH (10:00)
[2020-04-29] MEDS: BACITRACIN 0.9 GM PACKET TP SCH ×2 (10:23→22:55)
[2020-04-29] MEDS: BUPRENORPHINE/NALOXONE 8 MG/2 MG FILM PACKET SL SCH (10:23)
[2020-04-29] MEDS: PRENATAL VITAMINS W/ FOLIC ACID TABLET (FP) PO SCH (10:24)
[2020-04-29] MEDS: DIVALPROEX SODIUM 250 MG TABLET E.C. PO SCH ×2 (10:24→23:11)
[2020-04-29] MEDS: PANTOPRAZOLE 40 MG TABLET PO SCH ×2 (10:24→23:11)
[2020-04-29] MEDS: NICOTINE 21 MG/24 HOURS TOPICAL PATCH TD SCH (10:24)
[2020-04-29] MEDS: IBUPROFEN 400 MG TABLET (FP) PO PRN ×2 (15:40→23:15)
[2020-04-29] MEDS: THIAMINE HCL 100 MG TABLET (FP) PO SCH (23:11)
[2020-04-29] MEDS: hydrOXYzine PAMOATE 25 MG CAPSULE (FP) PO PRN (23:11)
[2020-04-29] MEDS: MELATONIN 5 MG TABLETS PO SCH (23:13)
[2020-04-30] MEDS: CEPHALEXIN MONOHYDRATE 500 MG CAPSULE (UD) PO SCH ×4 (06:34→23:04)
[2020-04-30] MEDS: GABAPENTIN 100 MG CAPSULE PO SCH ×3 (06:34→23:04)
[2020-04-30 07:36] VITALS: TEMP 97.3
[2020-04-30] MEDS: PRENATAL VITAMINS W/ FOLIC ACID TABLET (FP) PO SCH (10:17)
[2020-04-30] MEDS: PANTOPRAZOLE 40 MG TABLET PO SCH ×2 (10:17→23:05)
[2020-04-30] MEDS: DIVALPROEX SODIUM 250 MG TABLET E.C. PO SCH ×2 (10:17→23:04)
[2020-04-30] MEDS: BUPRENORPHINE/NALOXONE 8 MG/2 MG FILM PACKET SL SCH (10:17)
[2020-04-30] MEDS: BACITRACIN 0.9 GM PACKET TP SCH ×2 (10:17→23:05)
[2020-04-30] MEDS: NICOTINE 21 MG/24 HOURS TOPICAL PATCH TD SCH (10:17)
[2020-04-30] MEDS: IBUPROFEN 400 MG TABLET (FP) PO PRN ×2 (10:20→16:36)
[2020-04-30] MEDS: MELATONIN 5 MG TABLETS PO SCH (23:04)
[2020-04-30] MEDS: THIAMINE HCL 100 MG TABLET (FP) PO SCH (23:04)
[2020-05-01] MEDS: GABAPENTIN 100 MG CAPSULE PO SCH (06:32)
[2020-05-01] MEDS: CEPHALEXIN MONOHYDRATE 500 MG CAPSULE (UD) PO SCH (06:32)
[2020-05-01 07:06] VITALS: BP 103/72; PULSE 75
--- NOTE | 2020-05-01 09:12 | DS ---
[facility] Rehab Discharge Summary - [facility] Re[facility] Discharge Summary Admission Date: 04/24/20 Discharge Date: 05/01/20 - History Present History: Alcohol dependence, Opioid dependence Additional Comments: Follow up with primary care provider for continuity of care at [facility] within one week. If worsening symptoms are present seek medical attention or call 911. Pertinent Past History: Current Active Problems Problem Status Onset C. difficile diarrhea Acute Right wrist injury Acute Status post fall Acute Alcohol dependence, uncomplicated Chronic Depression Chronic GERD (gastroesophageal reflux disease) Chronic Hidradenitis suppurativa Chronic Nicotine dependence Chronic Opioid dependence on agonist therapy Chronic Schizoaffective disorder Chronic Walker as ambulation aid Chronic - Discharge Physical Exam Vital Signs: Vital Signs Temperature 97.3 F L 05/01/20 06:30 Pulse Rate 75 05/01/20 06:30 Respiratory Rate 18 05/01/20 06:30 Blood Pressure 103/72 05/01/20 06:30 O2 Sat by Pulse Oximetry (%) 98 05/01/20 06:30 Pertinent Admission Physical Exam Findings: Vital Signs Temperature 97.3 F L 05/01/20 06:30 Pulse Rate 75 05/01/20 06:30 Respiratory Rate 18 05/01/20 06:30 Blood Pressure 103/72 05/01/20 06:30 O2 Sat by Pulse Oximetry (%) 98 05/01/20 06:30 Laboratory Last Values WBC 7.1 K/mm3 (4.0-10.0) 04/25/20 07:25 RBC 3.62 M/mm3 (4.00-5.60) L 04/25/20 07:25 Hgb 10.8 GM/dL (11.7-16.9) L 04/25/20 07:25 Hct 33.2 % (35.4-49) L 04/25/20 07:25 MCV 91.8 fl (80-96) 04/25/20 07:25 MCH 29.9 pg (25.7-33.7) 04/25/20 07:25 MCHC 32.6 g/dl (32.0-35.9) 04/25/20 07:25 RDW 18.2 % (11.9-15.9) H 04/25/20 07:25 Plt Count 156 K/MM3 (134-434) D 04/25/20 07:25 MPV 9.9 fl (7.5-11.1) 04/25/20 07:25 Sickle Cell Screen Negative (NEGATIVE) 04/25/20 07:25 Sodium 136 mmol/L (136-145) 04/25/20 07:25 Potassium 4.2 mmol/L (3.5-5.1) 04/25/20 07:25 Chloride 102 mmol/L (98-107) 04/25/20 07:25 Carbon Dioxide 28 mmol/L (21-32) 04/25/20 07:25 Anion Gap 6 MMOL/L (8-16) L 04/25/20 07:25 BUN 10.1 mg/dL (7-18) 04/25/20 07:25 Creatinine 0.4 mg/dL (0.55-1.3) L 04/25/20 07:25 Est GFR (CKD-EPI)AfAm 157.17 04/25/20 07:25 Est GFR (CKD-EPI)NonAf 135.60 04/25/20 07:25 Random Glucose 94 mg/dL (74-106) 04/25/20 07:25 Calcium 8.7 mg/dL (8.5-10.1) 04/25/20 07:25 Total Bilirubin 0.4 mg/dL (0.2-1) 04/25/20 07:25 AST 18 U/L (15-37) 04/25/20 07:25 ALT 32 U/L (13-61) 04/25/20 07:25 Alkaline Phosphatase 72 U/L (45-117) 04/25/20 07:25 Total Protein 7.3 g/dl (6.4-8.2) 04/25/20 07:25 Albumin 2.8 g/dl (3.4-5.0) L 04/25/20 07:25 Urine Color Yellow 04/27/20 11:00 Urine Appearance Clear 04/27/20 11:00 Urine pH 5.5 (5.0-8.0) D 04/27/20 11:00 Ur Specific [place] 1.008 (1.010-1.035) L 04/27/20 11:00 Urine Protein Negative (NEGATIVE) 04/27/20 11:00 Urine Glucose (UA) Negative (NEGATIVE) 04/27/20 11:00 Urine Ketones Negative (NEGATIVE) 04/27/20 11:00 Urine Blood Negative (NEGATIVE) 04/27/20 11:00 Urine Nitrite Negative (NEGATIVE) 04/27/20 11:00 Urine Bilirubin Negative (NEGATIVE) 04/27/20 11:00 Urine Urobilinogen 0.2 mg/dL (0.2-1.0) 04/27/20 11:00 Ur Leukocyte Esterase Trace (NEGATIVE) 04/27/20 11:00 Urine WBC (Auto) 16 /uL (0-25.8) 04/27/20 11:00 Urine RBC (Auto) 13 /uL (0-23.9) 04/27/20 11:00 Urine Casts (Auto) 4 /uL (0-3.1) 04/27/20 11:00 U Epithel Cells (Auto) >36 /uL (0-25.1) 04/27/20 11:00 Urine Bacteria (Auto) 5 /uL (0-1359) 04/27/20 11:00 Valproic Acid < 3.0 ug/mL (50-100) L 04/25/20 07:25 Syphilis Serology Non-reactive (NONREACTIVE) 04/25/20 07:25 PE: AOx3, no acute distress EENT WNL CARDIAC - WNL, NO JVD, EDEMA RESP - no adventitious breath sounds on Respiratory distress NEURO - WNL Musculoskeletal - WNL, ambulates with rolling walker, gait steady Psych: No suicidal / homicidal ideation - Treatment Discharge Condition: Discharge condition good Hospital Course: Patient in no distress, successfully completed rehabilitation treatment, no hospital admissions during his rehabilitation stay. Will follow up with out patient program. - Medication Discharge Medications: Ambulatory Orders Buprenorphine HCl/Naloxone HCl [Suboxone 8 mg-2 mg Sl Tablets] 1 each SL DAILY 04/24/20 Divalproex [Depakote -] 500 mg PO HS 04/24/20 Duloxetine HCl [Cymbalta -] 30 mg PO DAILY 04/24/20 Gabapentin [Neurontin -] 100 mg PO TID 04/24/20 Pantoprazole Sodium [Protonix -] 40 mg PO BID 04/24/20 Vancomycin HCl 50 mg PO Q6H 04/24/20 traZODone HCL [Trazodone HCl] 25 mg PO PRN 04/24/20 Buprenorphine/Naloxone [Suboxone 8Mg/2Mg Sl Film -] 1 each SL DAILY 7 Days #7 film MDD 1 05/01/20 Divalproex [Depakote -] 250 mg PO BID #14 tablet.ec 05/01/20 Gabapentin [Neurontin -] 100 mg PO TID #21 capsule 05/01/20 Pantoprazole Sodium [Protonix -] 40 mg PO BID #14 tablet.ec 05/01/20 - Medication-Assisted Treatment (MAT) Medication-Assisted Treatment (MAT): Yes Medication Prescribed: Buprenorphine MAT Follow-up Referral: [facility] 05/04/2020 at 2PM - Discharge Instructions Diet, activity, other medical instructions: Diet: Activity: Other medical instructions: - Diagnosis (1) Alcohol dependence, uncomplicated Current Visit: Yes Status: Chronic (2) Depression Current Visit: Yes Status: Chronic (3) GERD (gastroesophageal reflux disease) Current Visit: Yes Status: Chronic Qualifiers: Esophagitis presence: with esophagitis Qualified Code(s): K21.0 - Gastro- esophageal reflux disease with esophagitis (4) Hidradenitis suppurativa Current Visit: Yes Status: Chronic (5) Nicotine dependence Current Visit: Yes Status: Chronic Qualifiers: Nicotine product type: cigarettes Substance use status: uncomplicated Qualified Code(s): F17.210 - Nicotine dependence, cigarettes, uncomplicated (6) Opioid dependence on agonist therapy Current Visit: Yes Status: Chronic (7) Schizoaffective disorder Current Visit: Yes Status: Chronic Qualifiers: Schizoaffective disorder type: unspecified Qualified Code(s): F25.9 - Schizoaffective disorder, unspecified (8) Walker as ambulation aid Current Visit: Yes Status: Chronic (9) History of homicidal ideation Current Visit: Yes Status: Resolved (10) History of suicidal ideation Current Visit: Yes Status: Resolved (11) Alcohol dependence with uncomplicated withdrawal Current Visit: No Status: Acute (12) Cannabis dependence in remission Current Visit: Yes Status: Acute (13) Insomnia Current Visit: Yes Status: Acute (14) Opioid dependence with withdrawal Current Visit: No Status: Acute (15) Schizophrenia Current Visit: No Status: Acute (16) Weight loss Current Visit: No Status: Acute (17) Nicotine dependence, unspecified, uncomplicated Current Visit: No Status: Chronic Qualifiers: Nicotine product type: cigarettes Qualified Code(s): F17.210 - Nicotine dependence, cigarettes, uncomplicated (18) Seizure disorder Current Visit: Yes Status: Chronic - Follow-up Referral Minutes to complete discharge: 30 - AMA Did Patient Leave Against Medical Advice: No
[2020-05-01] MEDS: DIVALPROEX SODIUM 250 MG TABLET E.C. PO SCH (09:14)
[2020-05-01] MEDS: NICOTINE 21 MG/24 HOURS TOPICAL PATCH TD SCH (09:14)
[2020-05-01] MEDS: PANTOPRAZOLE 40 MG TABLET PO SCH (09:14)
[2020-05-01] MEDS: BACITRACIN 0.9 GM PACKET TP SCH (09:14)
[2020-05-01] MEDS: PRENATAL VITAMINS W/ FOLIC ACID TABLET (FP) PO SCH (09:15)
[2020-05-01] MEDS: BUPRENORPHINE/NALOXONE 8 MG/2 MG FILM PACKET SL SCH (09:15)
== END 2020-05-01 10:30 | disposition home or self-care (01) | DRG 772 ==
LOC: YASAS 18:04 → Y3E 22:03
PROVIDERS: ADMIT Allergy & Immunology; ATTEND Allergy & Immunology
PROC: HZ42ZZZ Group Counseling for Substance Abuse Treatment, Cognitive-Behavioral (ICD-10-PCS; principal; 2020-04-24)
DX: F10.20 Alcohol dependence, uncomplicated (principal); F11.20 Opioid dependence, uncomplicated; F12.20 Cannabis dependence, uncomplicated; F17.210 Nicotine dependence, cigarettes, uncomplicated; F25.9 Schizoaffective disorder, unspecified; F32.9 Major depressive disorder, single episode, unspecified; A04.72 Enterocolitis due to Clostridium difficile, not specified as recurrent; G47.00 Insomnia, unspecified; G40.909 Epilepsy, unspecified, not intractable, without status epilepticus; K21.0 Gastro-esophageal reflux disease with esophagitis; L73.2 Hidradenitis suppurativa; L98.8 Other specified disorders of the skin and subcutaneous tissue; L02.416 Cutaneous abscess of left lower limb; M54.5 Low back pain; G89.29 Other chronic pain; Z86.59 Personal history of other mental and behavioral disorders; S69.81XD Other specified injuries of right wrist, hand and finger(s), subsequent encounter; W19.XXXD Unspecified fall, subsequent encounter; R26.89 Other abnormalities of gait and mobility; Z99.89 Dependence on other enabling machines and devices; R63.4 Abnormal weight loss; Z68.26 Body mass index [BMI] 26.0-26.9, adult; E73.9 Lactose intolerance, unspecified; Z91.018 Allergy to other foods; Z88.7 Allergy status to serum and vaccine
CPT/HCPCS: 36415; 73110-TC-RT-FY; 80053; 80164; 81003; 85027; 85660; 86780

== ENCOUNTER 2020-05-25 09:30 | Inpatient (IN) | payer OTHER ==
--- NOTE | 2020-05-25 09:51 | BHS.RME ---
Substance Use & Tx History - Substance Use History Alcohol Substance amount: 1 gallon vodka Frequency of use: Daily Substance route: Oral Date of Last Use: 05/24/20 Heroin Substance amount: 4 bags Frequency of use: Daily Substance route: Inhalation (ex: sniffing or snorting) Date of Last Use: 05/24/20 Nicotine Substance amount: 2 pack Frequency of use: Daily Substance route: Smoking Date of Last Use: 05/25/20 - Last Treatment Treatment type: Substance Use Disorder (VELMA) (04/25-05/01/20) Where was last treatment: Detox Physical/Psych/Mental Status - Behavior General Behavior: Increased activity (restlessness, agitation) Eye Contact: Normal - Cooperativeness Cooperativeness: Cooperative - Thinking Thought Processes: Tight, Logical, Goal Directed - Physical Health Problems Is patient presently having any pain?: No Does patient presently have any injuries (include location): No Does patient currently have a fever: No Is patient : No COWS - Scale Resting Pulse: 1= [place] 81-100 Sweatin= Beads of Sweat on Face Restless Observation: 1= Difficult to Sit Still Pupil Size: 1= Pupils >than Normal Bone or Joint Aches: 2= Severe Diffuse Aches Runny Nose/ Eye Tearin= Runny Nose/Eyes GI Upset > 30mins: 3= Vomiting/Diarrhea Tremor Observation: 2= Slight Tremor Visible Yawning Observation: 1= 1-2x During Session Anxiety or Irritability: 1=Feels Anxious/Irritable Goose Flesh Skin: 0=Smooth Skin COWS Score: 17 CIWA Nausea/Vomitin Muscle Tremors: 4-Moderate,w/Arms Extend Anxiety: 2 Agitation: 3 Paroxysmal Sweats: 4-Forehead w/Sweat Beads Orientation: 3-Disoriented Date>2 days Tacttile Disturbances: 0-None Auditory Disturbances: 0-None Visual Disturbances: 0-None Headache: 2-Mild CIWA-Ar Total Score: 21
[2020-05-25 10:52] VITALS: BMI 22.8
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
[2020-05-25] MEDS ORDERED: chlordiazePOXIDE HCL 25 MG CAPSULE PO PRN (11:10)
[2020-05-25] MEDS ORDERED: cloNIDine HCL 0.1 MG TABLET PO PRN (11:10)
[2020-05-25] MEDS ORDERED: NICOTINE POLACRILEX 2 MG GUM BUC PRN (11:10)
[2020-05-25] MEDS ORDERED: MENTHOL/PHENOL 1 EACH UD MM PRN (11:10)
[2020-05-25] MEDS ORDERED: BISMUTH SUBSALICYLATE 262 MG/15 ML BTL PO PRN (11:10)
[2020-05-25] MEDS ORDERED: MAGNESIUM HYDROX 2400MG/30ML ORAL SUSPENSION 30 ML CUP PO PRN (11:10)
[2020-05-25] MEDS ORDERED: ACETAMINOPHEN 325 MG TABLET (FP) PO PRN (11:10)
[2020-05-25] MEDS ORDERED: MAGNESIUM CITRATE 300 ML BOTTLE PO PRN (11:10)
[2020-05-25] MEDS ORDERED: METHADONE HCL 10 MG TABLET (FOR DETOX USE ONLY) PO ONE (11:10)
[2020-05-25] MEDS ORDERED: IBUPROFEN 400 MG TABLET (FP) PO PRN (11:10)
[2020-05-25] MEDS ORDERED: METHOCARBAMOL 500 MG TABLET PO PRN (11:10)
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
[2020-05-25] MEDS: NICOTINE 21 MG/24 HOURS TOPICAL PATCH TD SCH (12:06)
--- NOTE | 2020-05-25 12:10 | EKG ---
Test Reason : Blood Pressure : / mmHG Vent. Rate : 058 BPM Atrial Rate : 058 BPM P-R Int : 160 ms QRS Dur : 104 ms QT Int : 456 ms P-R-T Axes : 041 039 049 degrees QTc Int : 447 ms SINUS BRADYCARDIA OTHERWISE NORMAL ECG WHEN COMPARED WITH ECG OF 14-OCT-2019 00:35, NO SIGNIFICANT CHANGE WAS FOUND Confirmed by Enzo Kay ([id number]) on 05/25/2020 12:10:00 PM Referred By: Confirmed By:Enzo Kay
[2020-05-25] MEDS: ONDANSETRON *ODT* 4 MG TABLET SL PRN (12:11)
[2020-05-25] MEDS: DIVALPROEX SODIUM 500 MG TABLET E.C. PO SCH ×2 (14:49→22:31)
[2020-05-25] MEDS: hydrOXYzine PAMOATE 25 MG CAPSULE (FP) PO SCH ×3 (14:50→22:31)
[2020-05-25 16:43] LABS: HEMATOCRIT 35.2 % (35.4-49); HEMOGLOBIN 11.5 GM/dL (11.7-16.9); MCH 30.1 pg (25.7-33.7); MCHC 32.7 g/dl (32.0-35.9); MEAN CELL VOLUME 92.3 fl (80-96); MEAN PLT VOLUME 9.1 fl (7.5-11.1); PLATELET COUNT 168 K/MM3 (134-434); RBC 3.82 M/mm3 (4.00-5.60); RDW 16.7 % (11.9-15.9); WHITE BLOOD COUNT 3.6 K/mm3 (4.0-10.0)
[2020-05-25 16:50] LABS: ALBUMIN 3.5 g/dl (3.4-5.0); CALCIUM 9.2 mg/dL (8.5-10.1); CREATININE 0.6 mg/dL (0.55-1.3); POTASSIUM 3.9 mmol/L (3.5-5.1); TOT PROT 8.5 g/dl (6.4-8.2)
[2020-05-25] MEDS: chlordiazePOXIDE HCL 25 MG CAPSULE PO SCH ×2 (17:53→22:31)
[2020-05-25] MEDS: THIAMINE HCL 100 MG TABLET (FP) PO SCH (22:31)
[2020-05-25] MEDS: MELATONIN 5 MG TABLETS PO SCH (22:31)
[2020-05-26] MEDS: DIVALPROEX SODIUM 500 MG TABLET E.C. PO SCH ×3 (06:49→22:27)
[2020-05-26] MEDS: hydrOXYzine PAMOATE 25 MG CAPSULE (FP) PO SCH ×2 (06:49→10:45)
[2020-05-26] MEDS: chlordiazePOXIDE HCL 25 MG CAPSULE PO SCH ×2 (06:49→10:45)
[2020-05-26] MEDS ORDERED: METHADONE HCL 10 MG TABLET (FOR DETOX USE ONLY) ONE (09:22)
[2020-05-26] MEDS ORDERED: METHADONE HCL 5 MG TABLET (FOR DETOX USE ONLY) ONE (09:22)
[2020-05-26] MEDS ORDERED: METHADONE (DETOX) 20 MG, METHADONE (DETOX) 5 MG PO ONE (10:00)
[2020-05-26] MEDS: NICOTINE 21 MG/24 HOURS TOPICAL PATCH TD SCH (10:45)
[2020-05-26] MEDS: PRENATAL VITAMINS W/ FOLIC ACID TABLET (FP) PO SCH (10:45)
--- NOTE | 2020-05-26 12:33 | PN ---
[facility] CIWA - CIWA Score Nausea/Vomitin-Int. Nausea w/Dry Heave Muscle Tremors: 2 Anxiety: 4-Mod. Anxious/Guarded Agitation: 0-Normal Activity Paroxysmal Sweats: 1-Minimal Palms Moist Orientation: 0-Oriented Tacttile Disturbances: 0-None Auditory Disturbances: 0-None Visual Disturbances: 0-None Headache: 0-None Present CIWA-Ar Total Score: 11 S COWS - Scale Resting Pulse: 0= MT 80 or Below Sweatin= Chills/Flushing Restless Observation: 0= Sits Still Pupil Size: 0= Normal to Room Light Bone or Joint Aches: 4=Acute Joint/Muscle Pain Runny Nose/ Eye Tearin= None GI Upset > 30mins: 2= Nausea/Diarrhea (no diarrhea) Tremor Observation of Outstretched Hands: 1= Tremor [place], Not Seen Yawning Observation: 0= None Anxiety or Irritability: 1=Feels Anxious/Irritable Goose Flesh Skin: 0=Smooth Skin COWS Score: 9 [facility] Progress Note (SOAP) Subjective: Pt is a 55 y/o male admitted to detox for alcohol and heroin withdrawal sx. Pt appears very tired. c/o anxiety sweats/chills sl tremors nausea low appetite fatigue Objective: 05/26/20 12:30 Vital Signs - 24 hr 05/25/20 05/25/20 05/25/20 16:30 20:27 20:40 Temperature 97.5 F L 97.3 F L Pulse Rate 59 L 62 Respiratory 16 18 Rate Blood Pressure 129/79 119/73 O2 Sat by Pulse 96 96 Oximetry (%) 05/26/20 05/26/20 05:41 09:55 Temperature 98.0 F 96.9 F L Pulse Rate 76 74 Respiratory 18 16 Rate Blood Pressure 98/60 100/71 O2 Sat by Pulse 96 95 Oximetry (%) Laboratory Tests 05/25/20 05/25/20 05/25/20 11:10 11:10 11:10 WBC 3.6 L RBC 3.82 L Hgb 11.5 L Hct 35.2 L MCV 92.3 MCH 30.1 MCHC 32.7 RDW 16.7 H Plt Count 168 MPV 9.1 Sodium 136 Potassium 3.9 Chloride 104 Carbon Dioxide 27 Anion Gap 6 L BUN 10.0 Creatinine 0.6 Est GFR (CKD-EPI)AfAm 132.11 Est GFR (CKD-EPI)NonAf 113.99 Random Glucose 113 H Calcium 9.2 Total Bilirubin 1.0 AST 65 H ALT 58 Alkaline Phosphatase 59 Total Protein 8.5 H Albumin 3.5 Valproic Acid Syphilis Serology Non-reactive COVID-19 (SAHIL) 05/25/20 05/25/20 11:10 11:50 WBC RBC Hgb Hct MCV MCH MCHC RDW Plt Count MPV Sodium Potassium Chloride Carbon Dioxide Anion Gap BUN Creatinine Est GFR (CKD-EPI)AfAm Est GFR (CKD-EPI)NonAf Random Glucose Calcium Total Bilirubin AST ALT Alkaline Phosphatase Total Protein Albumin Valproic Acid 4.9 L Syphilis Serology COVID-19 (SAHIL) Not detected covid-19 not detected. alert o x 3 nad Pt in bed but responds and communicates needs coherently. Assessment: 05/26/20 12:33 withdrawal sx Plan: cont detox increase po fluids maintain safety D/c current Librium 50 mg po Q6H . Can always evaluate pt and give Librium 25 mg po prn sa ordered if pt is not drowsy and needs it for anxiety/tremors. Hold Librium 25 mg po Q6H starting 0500 on 05/27/20 and reevaluate pt at next dose.
[2020-05-26] MEDS: FERROUS SO4 325 MG TABLET (FP) PO SCH (13:35)
[2020-05-26] MEDS: MELATONIN 5 MG TABLETS PO SCH (22:27)
[2020-05-26] MEDS: THIAMINE HCL 100 MG TABLET (FP) PO SCH (22:27)
[2020-05-26] MEDS: MAG HYDROX/AL HYDROX/SIMETH 30 ML UNIT-DOSE CUP PO PRN (23:06)
[2020-05-27] MEDS: DIVALPROEX SODIUM 500 MG TABLET E.C. PO SCH ×3 (06:35→22:18)
[2020-05-27] MEDS ORDERED: METHADONE HCL 10 MG TABLET (FOR DETOX USE ONLY) PO ONE (10:00)
[2020-05-27] MEDS: FERROUS SO4 325 MG TABLET (FP) PO SCH (10:23)
[2020-05-27] MEDS: NICOTINE 21 MG/24 HOURS TOPICAL PATCH TD SCH (10:23)
[2020-05-27] MEDS: PRENATAL VITAMINS W/ FOLIC ACID TABLET (FP) PO SCH (10:23)
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
[2020-05-27] MEDS: MAG HYDROX/AL HYDROX/SIMETH 30 ML UNIT-DOSE CUP PO PRN ×2 (11:56→22:19)
[2020-05-27] MEDS: ACETAMINOPHEN 325 MG TABLET (FP) PO PRN (11:56)
[2020-05-27] MEDS: PANTOPRAZOLE 20 MG TABLET PO SCH (15:05)
[2020-05-27] MEDS: ONDANSETRON *ODT* 4 MG TABLET SL PRN (17:21)
[2020-05-27] MEDS ORDERED: TRIMETHOBENZAMIDE HCL 200MG/2ML INJ IM ONE (17:59)
--- NOTE | 2020-05-27 18:00 | PN ---
[facility] Progress Note Note: pt c/o nausea , no relief w/ Shobha MIR Vital Signs - 24 hr 05/26/20 05/27/20 05/27/20 20:55 05:38 09:27 Temperature 98.0 F 98.2 F 97.7 F Pulse Rate 76 72 89 Respiratory 18 18 16 Rate Blood Pressure 105/54 L 105/54 L 100/57 L O2 Sat by Pulse 97 94 L 95 Oximetry (%) 05/27/20 05/27/20 13:22 16:44 Temperature 97.3 F L 97.1 F L Pulse Rate 105 H 75 Respiratory 16 18 Rate Blood Pressure 105/68 122/72 O2 Sat by Pulse 97 Oximetry (%) P : Dominique i.m. ordered
[2020-05-27] MEDS: chlordiazePOXIDE HCL 25 MG CAPSULE PO SCH ×2 (18:25→22:18)
[2020-05-27] MEDS: hydrOXYzine PAMOATE 25 MG CAPSULE (FP) PO PRN (18:26)
[2020-05-27] MEDS: MELATONIN 5 MG TABLETS PO SCH (22:18)
[2020-05-27] MEDS: THIAMINE HCL 100 MG TABLET (FP) PO SCH (22:18)
[2020-05-28] MEDS ORDERED: chlordiazePOXIDE HCL 10 MG CAPSULE PO PRN
[2020-05-28] MEDS: chlordiazePOXIDE HCL 10 MG CAPSULE PO SCH ×4 (07:21→22:17)
[2020-05-28] MEDS: DIVALPROEX SODIUM 500 MG TABLET E.C. PO SCH ×3 (07:21→22:17)
[2020-05-28] MEDS ORDERED: METHADONE (DETOX) 10 MG, METHADONE (DETOX) 5 MG PO ONE (10:00)
[2020-05-28] MEDS: FERROUS SO4 325 MG TABLET (FP) PO SCH (10:31)
[2020-05-28] MEDS: NICOTINE 21 MG/24 HOURS TOPICAL PATCH TD SCH (10:31)
[2020-05-28] MEDS: PRENATAL VITAMINS W/ FOLIC ACID TABLET (FP) PO SCH (10:31)
[2020-05-28] MEDS: PANTOPRAZOLE 20 MG TABLET PO SCH (10:31)
[2020-05-28] MEDS ORDERED: METHADONE HCL 10 MG TABLET (FOR DETOX USE ONLY) ONE (10:33)
[2020-05-28] MEDS ORDERED: METHADONE HCL 5 MG TABLET (FOR DETOX USE ONLY) ONE (10:33)
--- NOTE | 2020-05-28 13:03 | PN ---
[facility] CIWA - CIWA Score Nausea/Vomitin-No Nausea/No Vomiting Muscle Tremors: 3 Anxiety: 4-Mod. Anxious/Guarded Agitation: 0-Normal Activity Paroxysmal Sweats: No Perspiration Orientation: 0-Oriented Tacttile Disturbances: 0-None Auditory Disturbances: 0-None Visual Disturbances: 0-None Headache: 0-None Present CIWA-Ar Total Score: 7 BHS COWS - Scale Resting Pulse: 1= [place] 81-100 Sweatin= Chills/Flushing Restless Observation: 0= Sits Still Pupil Size: 0= Normal to Room Light Bone or Joint Aches: 4=Acute Joint/Muscle Pain Runny Nose/ Eye Tearin= None GI Upset > 30mins: 0= None Tremor Observation of Outstretched Hands: 1= Tremor Suring, Not Seen Yawning Observation: 0= None Anxiety or Irritability: 1=Feels Anxious/Irritable Goose Flesh Skin: 0=Smooth Skin COWS Score: 8 S Progress Note (SOAP) Subjective: Pt reports "I'm starting to get my appetite back. Pt oob in wheelchair and ambulating self around the unit. Appears more energetic today . c/o sl anxiety hot/cold sweats intermittent sleep Objective: 05/28/20 13:10 Vital Signs - 24 hr 05/27/20 05/27/20 05/27/20 13:22 16:44 20:15 Temperature 97.3 F L 97.1 F L 97.5 F L Pulse Rate 105 H 75 84 Respiratory 16 18 17 Rate Blood Pressure 105/68 122/72 100/69 O2 Sat by Pulse 97 96 Oximetry (%) 05/28/20 05/28/20 06:54 09:28 Temperature 97.8 F 96.9 F L Pulse Rate 62 82 Respiratory 18 16 Rate Blood Pressure 102/62 98/67 O2 Sat by Pulse 96 97 Oximetry (%) Laboratory Tests 05/25/20 05/25/20 05/25/20 11:10 11:10 11:10 WBC 3.6 L RBC 3.82 L Hgb 11.5 L Hct 35.2 L MCV 92.3 MCH 30.1 MCHC 32.7 RDW 16.7 H Plt Count 168 MPV 9.1 Sodium 136 Potassium 3.9 Chloride 104 Carbon Dioxide 27 Anion Gap 6 L BUN 10.0 Creatinine 0.6 Est GFR (CKD-EPI)AfAm 132.11 Est GFR (CKD-EPI)NonAf 113.99 Random Glucose 113 H Calcium 9.2 Total Bilirubin 1.0 AST 65 H ALT 58 Alkaline Phosphatase 59 Total Protein 8.5 H Albumin 3.5 Valproic Acid Syphilis Serology Non-reactive COVID-19 (SAHIL) 05/25/20 05/25/20 11:10 11:50 WBC RBC Hgb Hct MCV MCH MCHC RDW Plt Count MPV Sodium Potassium Chloride Carbon Dioxide Anion Gap BUN Creatinine Est GFR (CKD-EPI)AfAm Est GFR (CKD-EPI)NonAf Random Glucose Calcium Total Bilirubin AST ALT Alkaline Phosphatase Total Protein Albumin Valproic Acid 4.9 L Syphilis Serology COVID-19 (SAHIL) Not detected Labs noted. Covid-19 not detected Alert o x 3 nad oob ambulating with wheelchair communicating needs coherently Assessment: 05/28/20 13:17 withdrawal sx Borderline Anemia Plan: cont detox increase po fluids maintain safety
[2020-05-28] MEDS: hydrOXYzine PAMOATE 25 MG CAPSULE (FP) PO PRN ×2 (15:04→22:17)
[2020-05-28] MEDS: MAG HYDROX/AL HYDROX/SIMETH 30 ML UNIT-DOSE CUP PO PRN (16:56)
[2020-05-28] MEDS: MELATONIN 5 MG TABLETS PO SCH (22:17)
[2020-05-28] MEDS: THIAMINE HCL 100 MG TABLET (FP) PO SCH (22:17)
[2020-05-28] MEDS: ACETAMINOPHEN 325 MG TABLET (FP) PO PRN (22:17)
[2020-05-29] MEDS: DIVALPROEX SODIUM 500 MG TABLET E.C. PO SCH ×3 (06:12→22:06)
[2020-05-29] MEDS: chlordiazePOXIDE HCL 10 MG CAPSULE PO SCH ×2 (06:12→17:51)
[2020-05-29] MEDS ORDERED: METHADONE HCL 10 MG TABLET (FOR DETOX USE ONLY) PO ONE (10:00)
[2020-05-29] MEDS: hydrOXYzine PAMOATE 25 MG CAPSULE (FP) PO PRN ×3 (10:23→22:07)
[2020-05-29] MEDS: PANTOPRAZOLE 20 MG TABLET PO SCH (10:23)
[2020-05-29] MEDS: FERROUS SO4 325 MG TABLET (FP) PO SCH (10:23)
[2020-05-29] MEDS: PRENATAL VITAMINS W/ FOLIC ACID TABLET (FP) PO SCH (10:23)
[2020-05-29] MEDS: NICOTINE 21 MG/24 HOURS TOPICAL PATCH TD SCH (10:24)
--- NOTE | 2020-05-29 10:41 | PN ---
S CIWA - CIWA Score Nausea/Vomitin-No Nausea/No Vomiting Muscle Tremors: 2 Anxiety: 3 Agitation: 0-Normal Activity Paroxysmal Sweats: No Perspiration Orientation: 0-Oriented Tacttile Disturbances: 0-None Auditory Disturbances: 0-None Visual Disturbances: 0-None Headache: 2-Mild CIWA-Ar Total Score: 7 BHS Progress Note (SOAP) Subjective: Pt is oob on wheelchair and reports he uses walker which he lost the same day before arriving here to detox. However, pt reports he walked into the C without walking aid. Pt currently has a cane now in detox. Pt is scheduled to be discharged in the morning and still c/o of chronic weakness in his legs when he stands. Pt is scheduled for discharge tomorrow and has been referred to [facility] and [facility] rehab for CD aftercare. Spoke to his counselor, Ms Ventura Leiva and Clinical Underground Drill Operator Qing Bernstein re:bed availability in [facility] for tomorrow who will follow up with intake today. c/o anxiety tremors hot/cold chills headache body aches Objective: 05/29/20 10:38 Vital Signs - 24 hr 05/28/20 05/28/20 05/28/20 13:08 17:38 20:54 Temperature 97.1 F L 98.0 F 97.8 F Pulse Rate 81 74 86 Respiratory 16 18 16 Rate Blood Pressure 91/66 101/65 99/66 O2 Sat by Pulse 97 98 96 Oximetry (%) 05/29/20 05/29/20 06:00 08:34 Temperature 98.0 F 97.3 F L Pulse Rate 81 87 Respiratory 18 17 Rate Blood Pressure 90/64 103/61 O2 Sat by Pulse 96 98 Oximetry (%) Laboratory Tests 05/25/20 05/25/20 05/25/20 11:10 11:10 11:10 WBC 3.6 L RBC 3.82 L Hgb 11.5 L Hct 35.2 L MCV 92.3 MCH 30.1 MCHC 32.7 RDW 16.7 H Plt Count 168 MPV 9.1 Sodium 136 Potassium 3.9 Chloride 104 Carbon Dioxide 27 Anion Gap 6 L BUN 10.0 Creatinine 0.6 Est GFR (CKD-EPI)AfAm 132.11 Est GFR (CKD-EPI)NonAf 113.99 Random Glucose 113 H Calcium 9.2 Total Bilirubin 1.0 AST 65 H ALT 58 Alkaline Phosphatase 59 Total Protein 8.5 H Albumin 3.5 Valproic Acid Syphilis Serology Non-reactive COVID-19 (SAHIL) 05/25/20 05/25/20 11:10 11:50 WBC RBC Hgb Hct MCV MCH MCHC RDW Plt Count MPV Sodium Potassium Chloride Carbon Dioxide Anion Gap BUN Creatinine Est GFR (CKD-EPI)AfAm Est GFR (CKD-EPI)NonAf Random Glucose Calcium Total Bilirubin AST ALT Alkaline Phosphatase Total Protein Albumin Valproic Acid 4.9 L Syphilis Serology COVID-19 (SAHIL) Not detected alert o x 3 nad pt in bed but communicated needs coherently. Assessment: 05/29/20 10:40 withdrawal sx Plan: [facility]lla detox increase po fluids maintain safety Pt to be evaluated by weekend provider for discharge tomorrow. Pt may be discharged to [facility] tomorrow if medically stable.
[2020-05-29] MEDS: MAG HYDROX/AL HYDROX/SIMETH 30 ML UNIT-DOSE CUP PO PRN (13:49)
--- NOTE | 2020-05-29 15:21 | PN ---
S Progress Note Note: Rounded again on pt this afternoon. Pt oob as needed ambulating self in wheelchair. Pt able to stand and ambulate with cane but for short distance. [facility] and pt has accepted to go here and is looking forward to going downstairs tomorrow. Discussed with pt to follow up with [facility] for primary care and possibility of replacing his walker when he sees his primary care provider.
[2020-05-29] MEDS: THIAMINE HCL 100 MG TABLET (FP) PO SCH (22:06)
[2020-05-29] MEDS: ONDANSETRON *ODT* 4 MG TABLET SL PRN (22:06)
[2020-05-29] MEDS: MELATONIN 5 MG TABLETS PO SCH (22:06)
[2020-05-30 02:33] LABS: URINE APPEARANCE CLEAR; URINE BILIRUBIN NEGATIVE (NEGATIVE); URINE COLOR YELLOW; URINE GLUCOSE (UA) NEGATIVE (NEGATIVE); URINE KETONE TRACE (NEGATIVE); URINE LEUK ESTERASE NEGATIVE (NEGATIVE); URINE NITRITE NEGATIVE (NEGATIVE); URINE PROTEIN NEGATIVE (NEGATIVE); URINE UROBILINOGEN 0.2 mg/dL (0.2-1.0)
[2020-05-30] MEDS ORDERED: chlordiazePOXIDE HCL 10 MG CAPSULE PO ONE (05:00)
[2020-05-30] MEDS ORDERED: METHADONE HCL 5 MG TABLET (FOR DETOX USE ONLY) PO ONE (06:00)
[2020-05-30] MEDS: DIVALPROEX SODIUM 500 MG TABLET E.C. PO SCH (06:49)
[2020-05-30 09:31] VITALS: BP 101/63; PULSE 99; TEMP 97.5
[2020-05-30] MEDS: PANTOPRAZOLE 20 MG TABLET PO SCH (10:11)
[2020-05-30] MEDS: FERROUS SO4 325 MG TABLET (FP) PO SCH (10:11)
[2020-05-30] MEDS: PRENATAL VITAMINS W/ FOLIC ACID TABLET (FP) PO SCH (10:12)
[2020-05-30] MEDS: NICOTINE 21 MG/24 HOURS TOPICAL PATCH TD SCH (10:12)
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
== END 2020-05-30 12:59 | disposition other institution (70) | DRG 773 ==
LOC: YASAS 09:30 → Y5N DETOX 10:20
PROVIDERS: ADMIT Allergy & Immunology; ATTEND Allergy & Immunology
PROC: HZ2ZZZZ Detoxification Services for Substance Abuse Treatment (ICD-10-PCS; principal; 2020-05-25)
DX: F11.23 Opioid dependence with withdrawal (principal); F10.230 Alcohol dependence with withdrawal, uncomplicated; F17.210 Nicotine dependence, cigarettes, uncomplicated; F19.24 Other psychoactive substance dependence with psychoactive substance-induced mood disorder; F19.282 Other psychoactive substance dependence with psychoactive substance-induced sleep disorder; F31.9 Bipolar disorder, unspecified; K21.9 Gastro-esophageal reflux disease without esophagitis; D64.9 Anemia, unspecified; E73.9 Lactose intolerance, unspecified; Z99.3 Dependence on wheelchair; Z91.81 History of falling; Z86.69 Personal history of other diseases of the nervous system and sense organs; Z91.013 Allergy to seafood; Z91.048 Other nonmedicinal substance allergy status; Z91.5 Personal history of self-harm
CPT/HCPCS: 36415; 80053; 80164; 81003; 85027; 86780; 93005; 93010; Q0162; U0003

== ENCOUNTER 2020-05-30 13:08 | Inpatient (IN) | payer OTHER ==
[2020-05-30] MEDS ORDERED: MAGNESIUM CITRATE 300 ML BOTTLE PO PRN (14:17)
[2020-05-30] MEDS ORDERED: ACETAMINOPHEN 325 MG TABLET (FP) PO PRN (14:17)
[2020-05-30] MEDS ORDERED: MAGNESIUM HYDROX 2400MG/30ML ORAL SUSPENSION 30 ML CUP PO PRN (14:17)
[2020-05-30] MEDS ORDERED: MENTHOL/PHENOL 1 EACH UD MM PRN (14:17)
[2020-05-30] MEDS ORDERED: P-EPHED 60MG/TRIPROLIDI 2.5MG TABLET PO PRN (14:17)
[2020-05-30] MEDS ORDERED: NICOTINE POLACRILEX 2 MG GUM BUC PRN (14:17)
[2020-05-30] MEDS ORDERED: guaiFENesin 200 MG/10 ML 10 ML UNIT-DOSE CUPS PO PRN (14:17)
--- NOTE | 2020-05-30 14:24 | HP ---
[facility] Rehab Assess/Revision - Admission History Admitted to Rehab from: [facility] Date of Admission to Rehab: 05/30/2020 - Vital signs Vital Signs: Vital Signs Period Temp Pulse Resp BP Sys/Prather Pulse Ox Last 24 Hr 97.7 F 69 18 99/69 96 - Findings Detox History & Physical reviewed: Yes Concur with findings: Yes Comments/Additional Findings: Patient's Medical / Medication History reviewed prior to Discharge from Detox Unit. Patient able to ambulate, but assistance to do required. Along with Cane, Wheelchair ordered to assist Patient with movement on Rehab Unit. Continue Feosol (started for treatment of Anemia while Patient was amditted for Detox) for first 7 days of Rehab admission. Patient was Discharged from Detox unit to be taken over to Rehab unit in stable medical condition. Inpatient Rehab Admission - Rehab Decision to Admit Inpatient rehab admission?: Yes - Initial Determination Are CD services needed?: Yes Free of communicable disease: Yes Not in need of hospitalization: Yes - Rehab Admission Criteria Previous failed treatment: Yes Poor recovery environment: Yes Comorbidities: Yes Lacks judgement: Yes Patient is meeting Inpatient Rehab admission criteria:: Yes
[2020-05-30] MEDS ORDERED: MASKS NR ONE (19:38)
[2020-05-30] MEDS: DIVALPROEX SODIUM 500 MG TABLET E.C. PO SCH (21:31)
[2020-05-30] MEDS: MELATONIN 5 MG TABLETS PO SCH (21:31)
[2020-05-30] MEDS: THIAMINE HCL 100 MG TABLET (FP) PO SCH (21:31)
[2020-05-31] MEDS: DIVALPROEX SODIUM 500 MG TABLET E.C. PO SCH ×3 (06:27→21:04)
[2020-05-31] MEDS: MAG HYDROX/AL HYDROX/SIMETH 30 ML UNIT-DOSE CUP PO PRN (06:30)
[2020-05-31] MEDS: PRENATAL VITAMINS W/ FOLIC ACID TABLET (FP) PO SCH (10:08)
[2020-05-31] MEDS: PANTOPRAZOLE 20 MG TABLET PO SCH (10:08)
[2020-05-31] MEDS: NICOTINE 21 MG/24 HOURS TOPICAL PATCH TD SCH (10:08)
[2020-05-31] MEDS: FERROUS SO4 325 MG TABLET (FP) PO SCH (10:08)
[2020-05-31] MEDS: hydrOXYzine PAMOATE 25 MG CAPSULE (FP) PO SCH ×2 (17:39→21:04)
[2020-05-31] MEDS: THIAMINE HCL 100 MG TABLET (FP) PO SCH (21:04)
[2020-05-31] MEDS: MELATONIN 5 MG TABLETS PO SCH (21:04)
[2020-06-01] MEDS: hydrOXYzine PAMOATE 25 MG CAPSULE (FP) PO SCH ×5 (06:16→21:23)
[2020-06-01] MEDS: DIVALPROEX SODIUM 500 MG TABLET E.C. PO SCH ×3 (06:17→21:23)
[2020-06-01] MEDS: NICOTINE 21 MG/24 HOURS TOPICAL PATCH TD SCH (09:39)
[2020-06-01] MEDS: PANTOPRAZOLE 20 MG TABLET PO SCH (09:39)
[2020-06-01] MEDS: PRENATAL VITAMINS W/ FOLIC ACID TABLET (FP) PO SCH (09:39)
[2020-06-01] MEDS: FERROUS SO4 325 MG TABLET (FP) PO SCH (09:39)
[2020-06-01] MEDS: IBUPROFEN 400 MG TABLET (FP) PO PRN (13:08)
[2020-06-01] MEDS: THIAMINE HCL 100 MG TABLET (FP) PO SCH (21:23)
[2020-06-01] MEDS: MELATONIN 5 MG TABLETS PO SCH (21:23)
[2020-06-02] MEDS: hydrOXYzine PAMOATE 25 MG CAPSULE (FP) PO SCH ×5 (06:08→21:06)
[2020-06-02] MEDS: DIVALPROEX SODIUM 500 MG TABLET E.C. PO SCH ×3 (06:08→21:06)
[2020-06-02] MEDS: PRENATAL VITAMINS W/ FOLIC ACID TABLET (FP) PO SCH (10:23)
[2020-06-02] MEDS: PANTOPRAZOLE 20 MG TABLET PO SCH (10:24)
[2020-06-02] MEDS: NICOTINE 21 MG/24 HOURS TOPICAL PATCH TD SCH (10:24)
[2020-06-02] MEDS: FERROUS SO4 325 MG TABLET (FP) PO SCH (10:24)
[2020-06-02] MEDS: THIAMINE HCL 100 MG TABLET (FP) PO SCH (21:05)
[2020-06-02] MEDS: MELATONIN 5 MG TABLETS PO SCH (21:05)
[2020-06-03] MEDS: DIVALPROEX SODIUM 500 MG TABLET E.C. PO SCH ×3 (06:12→21:43)
[2020-06-03] MEDS: hydrOXYzine PAMOATE 25 MG CAPSULE (FP) PO SCH ×5 (06:12→21:43)
[2020-06-03] MEDS: FERROUS SO4 325 MG TABLET (FP) PO SCH (09:49)
[2020-06-03] MEDS: PANTOPRAZOLE 20 MG TABLET PO SCH (09:49)
[2020-06-03] MEDS: PRENATAL VITAMINS W/ FOLIC ACID TABLET (FP) PO SCH (09:50)
[2020-06-03] MEDS: NICOTINE 21 MG/24 HOURS TOPICAL PATCH TD SCH (09:50)
[2020-06-03] MEDS: MELATONIN 5 MG TABLETS PO SCH (21:43)
[2020-06-03] MEDS: THIAMINE HCL 100 MG TABLET (FP) PO SCH (21:43)
[2020-06-04] MEDS: hydrOXYzine PAMOATE 25 MG CAPSULE (FP) PO SCH ×5 (06:44→21:04)
[2020-06-04] MEDS: DIVALPROEX SODIUM 500 MG TABLET E.C. PO SCH ×3 (06:44→21:04)
[2020-06-04] MEDS: PANTOPRAZOLE 20 MG TABLET PO SCH (10:27)
[2020-06-04] MEDS: FERROUS SO4 325 MG TABLET (FP) PO SCH (10:27)
[2020-06-04] MEDS: NICOTINE 21 MG/24 HOURS TOPICAL PATCH TD SCH (10:27)
[2020-06-04] MEDS: PRENATAL VITAMINS W/ FOLIC ACID TABLET (FP) PO SCH (10:27)
[2020-06-04] MEDS: MELATONIN 5 MG TABLETS PO SCH (21:04)
[2020-06-04] MEDS: THIAMINE HCL 100 MG TABLET (FP) PO SCH (21:04)
[2020-06-05] MEDS: DIVALPROEX SODIUM 500 MG TABLET E.C. PO SCH ×3 (06:34→21:57)
[2020-06-05] MEDS: hydrOXYzine PAMOATE 25 MG CAPSULE (FP) PO SCH ×5 (06:34→21:57)
[2020-06-05] MEDS: PANTOPRAZOLE 20 MG TABLET PO SCH (10:46)
[2020-06-05] MEDS: PRENATAL VITAMINS W/ FOLIC ACID TABLET (FP) PO SCH (10:47)
[2020-06-05] MEDS: FERROUS SO4 325 MG TABLET (FP) PO SCH (10:47)
[2020-06-05] MEDS: NICOTINE 21 MG/24 HOURS TOPICAL PATCH TD SCH (10:47)
[2020-06-05] MEDS: MELATONIN 5 MG TABLETS PO SCH (21:57)
[2020-06-05] MEDS: THIAMINE HCL 100 MG TABLET (FP) PO SCH (21:57)
[2020-06-05] MEDS: IBUPROFEN 400 MG TABLET (FP) PO PRN (21:58)
[2020-06-06] MEDS: DIVALPROEX SODIUM 500 MG TABLET E.C. PO SCH ×3 (07:22→21:10)
[2020-06-06] MEDS: hydrOXYzine PAMOATE 25 MG CAPSULE (FP) PO SCH ×3 (07:22→13:29)
[2020-06-06] MEDS: NICOTINE 21 MG/24 HOURS TOPICAL PATCH TD SCH (10:25)
[2020-06-06] MEDS: PANTOPRAZOLE 20 MG TABLET PO SCH (10:26)
[2020-06-06] MEDS: PRENATAL VITAMINS W/ FOLIC ACID TABLET (FP) PO SCH (10:26)
[2020-06-06] MEDS: FERROUS SO4 325 MG TABLET (FP) PO SCH (10:26)
[2020-06-06] MEDS: IBUPROFEN 400 MG TABLET (FP) PO PRN ×2 (13:29→21:12)
[2020-06-06] MEDS: THIAMINE HCL 100 MG TABLET (FP) PO SCH (21:10)
[2020-06-06] MEDS: MELATONIN 5 MG TABLETS PO SCH (21:11)
[2020-06-07] MEDS: DIVALPROEX SODIUM 500 MG TABLET E.C. PO SCH ×3 (06:33→21:38)
[2020-06-07] MEDS: PRENATAL VITAMINS W/ FOLIC ACID TABLET (FP) PO SCH (09:49)
[2020-06-07] MEDS: NICOTINE 21 MG/24 HOURS TOPICAL PATCH TD SCH (09:49)
[2020-06-07] MEDS: PANTOPRAZOLE 20 MG TABLET PO SCH (09:49)
[2020-06-07] MEDS: THIAMINE HCL 100 MG TABLET (FP) PO SCH (21:38)
[2020-06-07] MEDS: MELATONIN 5 MG TABLETS PO SCH (21:38)
[2020-06-08] MEDS: DIVALPROEX SODIUM 500 MG TABLET E.C. PO SCH ×3 (07:00→21:10)
[2020-06-08] MEDS: PRENATAL VITAMINS W/ FOLIC ACID TABLET (FP) PO SCH (10:43)
[2020-06-08] MEDS: PANTOPRAZOLE 20 MG TABLET PO SCH (10:43)
[2020-06-08] MEDS: NICOTINE 21 MG/24 HOURS TOPICAL PATCH TD SCH (10:43)
[2020-06-08] MEDS: hydrOXYzine PAMOATE 25 MG CAPSULE (FP) PO PRN (13:51)
[2020-06-08] MEDS: THIAMINE HCL 100 MG TABLET (FP) PO SCH (21:10)
[2020-06-08] MEDS: MELATONIN 5 MG TABLETS PO SCH (21:10)
[2020-06-08] MEDS: IBUPROFEN 400 MG TABLET (FP) PO PRN (21:11)
[2020-06-09] MEDS: DIVALPROEX SODIUM 500 MG TABLET E.C. PO SCH ×3 (06:40→21:44)
[2020-06-09] MEDS: IBUPROFEN 400 MG TABLET (FP) PO PRN ×2 (06:41→21:45)
[2020-06-09] MEDS: hydrOXYzine PAMOATE 25 MG CAPSULE (FP) PO PRN ×2 (06:41→15:05)
[2020-06-09] MEDS: PANTOPRAZOLE 20 MG TABLET PO SCH (10:13)
[2020-06-09] MEDS: NICOTINE 21 MG/24 HOURS TOPICAL PATCH TD SCH (10:13)
[2020-06-09] MEDS: PRENATAL VITAMINS W/ FOLIC ACID TABLET (FP) PO SCH (10:13)
[2020-06-09] MEDS: MELATONIN 5 MG TABLETS PO SCH (21:44)
[2020-06-09] MEDS: THIAMINE HCL 100 MG TABLET (FP) PO SCH (21:44)
[2020-06-10] MEDS: DIVALPROEX SODIUM 500 MG TABLET E.C. PO SCH ×4 (06:01→21:12)
[2020-06-10] MEDS: PANTOPRAZOLE 20 MG TABLET PO SCH (10:29)
[2020-06-10] MEDS: PRENATAL VITAMINS W/ FOLIC ACID TABLET (FP) PO SCH (10:29)
[2020-06-10] MEDS: hydrOXYzine PAMOATE 25 MG CAPSULE (FP) PO PRN ×2 (10:29→23:52)
[2020-06-10] MEDS: NICOTINE 21 MG/24 HOURS TOPICAL PATCH TD SCH (10:29)
[2020-06-10] MEDS: IBUPROFEN 400 MG TABLET (FP) PO PRN ×2 (10:30→21:12)
[2020-06-10] MEDS: THIAMINE HCL 100 MG TABLET (FP) PO SCH (21:12)
[2020-06-10] MEDS: MELATONIN 5 MG TABLETS PO SCH (21:12)
[2020-06-11] MEDS: DIVALPROEX SODIUM 500 MG TABLET E.C. PO SCH ×3 (06:36→21:28)
[2020-06-11] MEDS: hydrOXYzine PAMOATE 25 MG CAPSULE (FP) PO PRN ×3 (06:36→22:55)
[2020-06-11] MEDS: PANTOPRAZOLE 20 MG TABLET PO SCH (10:31)
[2020-06-11] MEDS: IBUPROFEN 400 MG TABLET (FP) PO PRN ×2 (10:31→22:55)
[2020-06-11] MEDS: PRENATAL VITAMINS W/ FOLIC ACID TABLET (FP) PO SCH (10:31)
[2020-06-11] MEDS: NICOTINE 21 MG/24 HOURS TOPICAL PATCH TD SCH (10:32)
[2020-06-11] MEDS: MELATONIN 5 MG TABLETS PO SCH (21:28)
[2020-06-11] MEDS: THIAMINE HCL 100 MG TABLET (FP) PO SCH (21:29)
[2020-06-12] MEDS: DIVALPROEX SODIUM 500 MG TABLET E.C. PO SCH ×3 (06:30→21:26)
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
[2020-06-12] MEDS ORDERED: ALBUTEROL SO4 HFA INHALER IH PRN (10:21)
--- NOTE | 2020-06-12 10:24 | PN ---
[facility] Progress Note Note: Vital Signs (72 hours) 06/09/20 06/09/20 06/10/20 14:55 22:05 06:54 Temperature 97.3 F L 97.8 F Pulse Rate Respiratory 18 Rate Blood Pressure 107/69 O2 Sat by Pulse 98 95 98 Oximetry (%) 06/10/20 06/10/20 06/11/20 14:28 20:35 06:33 Temperature 97.5 F L 97.1 F L Pulse Rate 61 Respiratory 18 Rate Blood Pressure 102/68 O2 Sat by Pulse 98 96 99 Oximetry (%) 06/11/20 06/11/20 06/11/20 14:22 20:05 22:12 Temperature 97.7 F Pulse Rate 82 Respiratory 18 Rate Blood Pressure 100/61 O2 Sat by Pulse 97 96 98 Oximetry (%) 06/12/20 05:55 Temperature 97.3 F L Pulse Rate 64 Respiratory 18 Rate Blood Pressure 114/64 O2 Sat by Pulse 98 Oximetry (%) Patient c/o mild sob with ambulation. Reports hx of asthma and nicotine use. Patient denies chest pain, sob and dizziness. PE alert and oriented x 3 skin warm and dry car s1s2 resp faint wheeze at RLL, no rhonchi/rales, O2 sats 98% ext full rom, amb ad nasreen no tremors A/P Mild SOB hx of asthma will start albuterol prn CXR ordered monitor clinically
[2020-06-12] MEDS: PRENATAL VITAMINS W/ FOLIC ACID TABLET (FP) PO SCH (10:29)
[2020-06-12] MEDS: PANTOPRAZOLE 20 MG TABLET PO SCH (10:29)
[2020-06-12] MEDS: NICOTINE 21 MG/24 HOURS TOPICAL PATCH TD SCH (10:30)
[2020-06-12] MEDS: hydrOXYzine PAMOATE 25 MG CAPSULE (FP) PO PRN ×2 (10:30→21:28)
--- NOTE | 2020-06-12 15:47 | EKG ---
Test Reason : Blood Pressure : / mmHG Vent. Rate : 078 BPM Atrial Rate : 078 BPM P-R Int : 162 ms QRS Dur : 102 ms QT Int : 404 ms P-R-T Axes : 059 035 058 degrees QTc Int : 460 ms NORMAL SINUS RHYTHM NORMAL ECG WHEN COMPARED WITH ECG OF 25-MAY-2020 10:17, NO SIGNIFICANT CHANGE WAS FOUND Confirmed by GUNNER DRAKE MD ([id number]) on 06/12/2020 3:46:45 PM Referred By: Confirmed By:GUNNER DRAKE MD
[2020-06-12] MEDS: THIAMINE HCL 100 MG TABLET (FP) PO SCH (21:26)
[2020-06-12] MEDS: MELATONIN 5 MG TABLETS PO SCH (21:26)
[2020-06-12] MEDS: IBUPROFEN 400 MG TABLET (FP) PO PRN (21:29)
[2020-06-13] MEDS: DIVALPROEX SODIUM 500 MG TABLET E.C. PO SCH ×3 (05:52→21:52)
[2020-06-13] MEDS: PRENATAL VITAMINS W/ FOLIC ACID TABLET (FP) PO SCH (10:04)
[2020-06-13] MEDS: NICOTINE 21 MG/24 HOURS TOPICAL PATCH TD SCH (10:04)
[2020-06-13] MEDS: hydrOXYzine PAMOATE 25 MG CAPSULE (FP) PO PRN ×2 (10:04→21:52)
[2020-06-13] MEDS: PANTOPRAZOLE 20 MG TABLET PO SCH (10:05)
[2020-06-13] MEDS: THIAMINE HCL 100 MG TABLET (FP) PO SCH (21:52)
[2020-06-13] MEDS: MELATONIN 5 MG TABLETS PO SCH (21:52)
[2020-06-14] MEDS: DIVALPROEX SODIUM 500 MG TABLET E.C. PO SCH ×3 (07:23→22:17)
[2020-06-14] MEDS: PRENATAL VITAMINS W/ FOLIC ACID TABLET (FP) PO SCH (10:52)
[2020-06-14] MEDS: NICOTINE 21 MG/24 HOURS TOPICAL PATCH TD SCH (10:52)
[2020-06-14] MEDS: PANTOPRAZOLE 20 MG TABLET PO SCH (10:53)
--- NOTE | 2020-06-14 15:57 | CONSULT ---
[facility] Psychiatric Consult - Data Date of interview: 06/14/20 Admission source: [facility] Identifying data: Merchandise Presentation Manager approached patient for psychiatric consulation but patient refused consultation service. Patient stated to senior underwriter, '' I wanted to speak to yall several days ago not today. No need to speak to you now." Psychiatric consultation refused.
[2020-06-14] MEDS: MELATONIN 5 MG TABLETS PO SCH (22:17)
[2020-06-14] MEDS: THIAMINE HCL 100 MG TABLET (FP) PO SCH (22:18)
[2020-06-15] MEDS: DIVALPROEX SODIUM 500 MG TABLET E.C. PO SCH ×3 (07:27→22:13)
[2020-06-15] MEDS ORDERED: hydrOXYzine PAMOATE 50 MG CAPSULE (FP) PO PRN (10:33)
[2020-06-15] MEDS: NICOTINE 21 MG/24 HOURS TOPICAL PATCH TD SCH (10:58)
[2020-06-15] MEDS: PANTOPRAZOLE 20 MG TABLET PO SCH (10:58)
[2020-06-15] MEDS: PRENATAL VITAMINS W/ FOLIC ACID TABLET (FP) PO SCH (10:58)
[2020-06-15] MEDS: hydrOXYzine PAMOATE 25 MG CAPSULE (FP) PO PRN (15:46)
[2020-06-15] MEDS: THIAMINE HCL 100 MG TABLET (FP) PO SCH (22:13)
[2020-06-15] MEDS: MELATONIN 5 MG TABLETS PO SCH (22:13)
[2020-06-16] MEDS: MAG HYDROX/AL HYDROX/SIMETH 30 ML UNIT-DOSE CUP PO PRN (01:51)
[2020-06-16] MEDS: DIVALPROEX SODIUM 500 MG TABLET E.C. PO SCH ×3 (07:09→21:12)
--- NOTE | 2020-06-16 10:39 | PN ---
S Progress Note Note: Nurse Jumana reported that Mr Ajith has been refusing his Depakote he takes for seizure. Pt has been counselled on the dangers of not taking his seizure medication but refusing when he does not want it. Vital Signs - 24 hr 06/15/20 06/15/20 06/16/20 13:58 20:26 05:54 Temperature 98.7 F 97.8 F Pulse Rate 89 Respiratory 18 Rate Blood Pressure 103/67 O2 Sat by Pulse 99 95 95 Oximetry (%) Alert o x 3 nad oob ambulating with steady gait A:Hx Seizure disorder Depakote level today.
[2020-06-16] MEDS: NICOTINE 21 MG/24 HOURS TOPICAL PATCH TD SCH (10:41)
[2020-06-16] MEDS: PANTOPRAZOLE 20 MG TABLET PO SCH (10:41)
[2020-06-16] MEDS: PRENATAL VITAMINS W/ FOLIC ACID TABLET (FP) PO SCH (10:41)
[2020-06-16] MEDS: IBUPROFEN 400 MG TABLET (FP) PO PRN (15:45)
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
[2020-06-16] MEDS: THIAMINE HCL 100 MG TABLET (FP) PO SCH (21:12)
[2020-06-16] MEDS: DOCUSATE SODIUM 100 MG CAPSULE (FP) PO SCH (21:12)
[2020-06-16] MEDS: MELATONIN 5 MG TABLETS PO SCH (21:12)
[2020-06-16] MEDS: hydrOXYzine PAMOATE 25 MG CAPSULE (FP) PO PRN (21:12)
[2020-06-17] MEDS: DIVALPROEX SODIUM 500 MG TABLET E.C. PO SCH ×3 (07:04→21:59)
[2020-06-17] MEDS: DOCUSATE SODIUM 100 MG CAPSULE (FP) PO SCH ×3 (07:04→21:59)
--- NOTE | 2020-06-17 09:24 | EKG ---
Test Reason : Blood Pressure : / mmHG Vent. Rate : 076 BPM Atrial Rate : 076 BPM P-R Int : 164 ms QRS Dur : 100 ms QT Int : 406 ms P-R-T Axes : 060 035 053 degrees QTc Int : 456 ms NORMAL SINUS RHYTHM NORMAL ECG WHEN COMPARED WITH ECG OF 11-JUN-2020 21:29, NO SIGNIFICANT CHANGE WAS FOUND Confirmed by Archie Schmid MD ([id number]) on 06/17/2020 9:23:42 AM Referred By: Diana VILLAGOMEZ Confirmed By:Archie Schmid MD
[2020-06-17] MEDS: PRENATAL VITAMINS W/ FOLIC ACID TABLET (FP) PO SCH (10:53)
[2020-06-17] MEDS: PANTOPRAZOLE 20 MG TABLET PO SCH (10:53)
[2020-06-17] MEDS: NICOTINE 21 MG/24 HOURS TOPICAL PATCH TD SCH (10:53)
[2020-06-17] MEDS: MAG HYDROX/AL HYDROX/SIMETH 30 ML UNIT-DOSE CUP PO PRN (15:18)
--- NOTE | 2020-06-17 15:24 | PN ---
[facility] Progress Note (SOAP) Subjective: patient with c/o food feeling stuck in his throat. states it has felt this way for a couple of days. He tried yogurt to get the food down. Pointed to mid chest, right side. denies any radiation, denies any stomach pain. Denies hx of HIV infection. Also c/o "cyst' on leg that hurts. Objective: P/E General: no apparent distress HEENTM: Mouth: tongue clear, unable to visualize pharynx Neck: supple Resp: no use of accessory muscles Skin: round, raised, dark, lesion on left lateral thigh with some scaling. Tender to palpation. 06/17/20 15:20 Assessment: Most likely Thrush cellulitis-left leg 06/17/20 15:23 06/17/20 15:24 Plan: Thrush-started nystatin swish and swallo Cellulitis: started Bactrim DS Patient offered HIV test, refused, will continue to monitor and explore with patient.
[2020-06-17] MEDS: SULFAMETHOXAZOLE/TRIMETHOPRIM 800MG/160MG D.S. TABLET PO SCH (16:08)
[2020-06-17] MEDS: PANTOPRAZOLE 40 MG TABLET PO SCH (16:08)
[2020-06-17] MEDS: hydrOXYzine PAMOATE 25 MG CAPSULE (FP) PO PRN ×2 (16:55→22:01)
[2020-06-17] MEDS: NYSTATIN 500,000 UNITS/5 ML SUSPENSION PO SCH (19:06)
[2020-06-17] MEDS: MELATONIN 5 MG TABLETS PO SCH (21:59)
[2020-06-17] MEDS: THIAMINE HCL 100 MG TABLET (FP) PO SCH (21:59)
[2020-06-18] MEDS: DOCUSATE SODIUM 100 MG CAPSULE (FP) PO SCH ×4 (06:05→21:07)
[2020-06-18] MEDS: NYSTATIN 500,000 UNITS/5 ML SUSPENSION PO SCH ×3 (06:06→21:08)
[2020-06-18] MEDS: DIVALPROEX SODIUM 500 MG TABLET E.C. PO SCH ×3 (06:07→21:06)
[2020-06-18] MEDS: PRENATAL VITAMINS W/ FOLIC ACID TABLET (FP) PO SCH (10:24)
[2020-06-18] MEDS: SULFAMETHOXAZOLE/TRIMETHOPRIM 800MG/160MG D.S. TABLET PO SCH ×2 (10:24→10:52)
[2020-06-18] MEDS: NICOTINE 21 MG/24 HOURS TOPICAL PATCH TD SCH (10:24)
[2020-06-18] MEDS: PANTOPRAZOLE 40 MG TABLET PO SCH (10:49)
[2020-06-18] MEDS: hydrOXYzine PAMOATE 25 MG CAPSULE (FP) PO PRN ×2 (10:49→21:07)
--- NOTE | 2020-06-18 12:01 | PN ---
[facility] Progress Note Note: Patient has a depakote level of 4.9. He has been intermittently refusing his depakote medication. He states that he only gets seizures when he drinks and because he is not drinking now, he will not get seizures. Patient refused lab draw for depakote level today, P/E: General-no apparent distress HEENTM: normocephalic, PERRLA, EOMI, Neck: supple MSK: full weight bearing, steady gait, Neuro: CN 2-12 intact, no cognitive deficits noted, no tremors or involuntary movements noted. A: Seizure disorder, non-compliance with medication P: Explained to the patient the need for a therapeutic depakote level Informed client of the possible consequences of insufficient depakote in his system Patient understood and accepted this information. Nursing staff also reinforced the the need to take depakote as prescribed.
[2020-06-18] MEDS: THIAMINE HCL 100 MG TABLET (FP) PO SCH (21:07)
[2020-06-18] MEDS: MELATONIN 5 MG TABLETS PO SCH (21:07)
[2020-06-19] MEDS: DOCUSATE SODIUM 100 MG CAPSULE (FP) PO SCH ×3 (06:11→21:47)
[2020-06-19] MEDS: NYSTATIN 500,000 UNITS/5 ML SUSPENSION PO SCH ×3 (06:11→22:17)
[2020-06-19] MEDS: DIVALPROEX SODIUM 500 MG TABLET E.C. PO SCH ×3 (06:12→21:47)
[2020-06-19] MEDS ORDERED: PT OWN MED DRAWER 7, Y5N ONE (08:48)
[2020-06-19] MEDS: SULFAMETHOXAZOLE/TRIMETHOPRIM 800MG/160MG D.S. TABLET PO SCH (13:08)
[2020-06-19] MEDS: PANTOPRAZOLE 40 MG TABLET PO SCH (13:08)
[2020-06-19] MEDS: NICOTINE 21 MG/24 HOURS TOPICAL PATCH TD SCH (13:09)
[2020-06-19] MEDS: PRENATAL VITAMINS W/ FOLIC ACID TABLET (FP) PO SCH (13:10)
[2020-06-19] MEDS: LOPERAMIDE HCL 2 MG CAPSULE PO PRN ×2 (15:44→21:48)
[2020-06-19] MEDS: THIAMINE HCL 100 MG TABLET (FP) PO SCH (21:46)
[2020-06-19] MEDS: hydrOXYzine PAMOATE 25 MG CAPSULE (FP) PO PRN (21:46)
[2020-06-19] MEDS: MELATONIN 5 MG TABLETS PO SCH (21:47)
[2020-06-20] MEDS: NYSTATIN 500,000 UNITS/5 ML SUSPENSION PO SCH ×5 (01:12→18:15)
[2020-06-20] MEDS: DOCUSATE SODIUM 100 MG CAPSULE (FP) PO SCH ×3 (06:58→21:15)
[2020-06-20] MEDS: DIVALPROEX SODIUM 500 MG TABLET E.C. PO SCH ×3 (06:58→21:15)
[2020-06-20] MEDS: PANTOPRAZOLE 40 MG TABLET PO SCH (10:05)
[2020-06-20] MEDS: NICOTINE 21 MG/24 HOURS TOPICAL PATCH TD SCH (10:05)
[2020-06-20] MEDS: SULFAMETHOXAZOLE/TRIMETHOPRIM 800MG/160MG D.S. TABLET PO SCH (10:05)
[2020-06-20] MEDS: PRENATAL VITAMINS W/ FOLIC ACID TABLET (FP) PO SCH (10:05)
[2020-06-20] MEDS: THIAMINE HCL 100 MG TABLET (FP) PO SCH (21:15)
[2020-06-20] MEDS: MELATONIN 5 MG TABLETS PO SCH (21:16)
[2020-06-21] MEDS: NYSTATIN 500,000 UNITS/5 ML SUSPENSION PO SCH ×5 (00:15→23:51)
[2020-06-21] MEDS: DIVALPROEX SODIUM 500 MG TABLET E.C. PO SCH ×3 (06:56→21:38)
[2020-06-21] MEDS: DOCUSATE SODIUM 100 MG CAPSULE (FP) PO SCH ×3 (06:56→21:38)
[2020-06-21] MEDS: PANTOPRAZOLE 40 MG TABLET PO SCH (09:51)
[2020-06-21] MEDS: SULFAMETHOXAZOLE/TRIMETHOPRIM 800MG/160MG D.S. TABLET PO SCH (09:51)
[2020-06-21] MEDS: PRENATAL VITAMINS W/ FOLIC ACID TABLET (FP) PO SCH (09:52)
[2020-06-21] MEDS: NICOTINE 21 MG/24 HOURS TOPICAL PATCH TD SCH (09:52)
[2020-06-21] MEDS: hydrOXYzine PAMOATE 25 MG CAPSULE (FP) PO PRN (09:53)
[2020-06-21] MEDS: MAG HYDROX/AL HYDROX/SIMETH 30 ML UNIT-DOSE CUP PO PRN (19:56)
[2020-06-21] MEDS: MELATONIN 5 MG TABLETS PO SCH (21:38)
[2020-06-21] MEDS: THIAMINE HCL 100 MG TABLET (FP) PO SCH (21:38)
[2020-06-22] MEDS: DIVALPROEX SODIUM 500 MG TABLET E.C. PO SCH ×3 (06:00→21:30)
[2020-06-22] MEDS: NYSTATIN 500,000 UNITS/5 ML SUSPENSION PO SCH ×3 (06:00→18:21)
[2020-06-22] MEDS: DOCUSATE SODIUM 100 MG CAPSULE (FP) PO SCH ×3 (06:00→21:31)
[2020-06-22] MEDS: SULFAMETHOXAZOLE/TRIMETHOPRIM 800MG/160MG D.S. TABLET PO SCH (09:56)
[2020-06-22] MEDS: PRENATAL VITAMINS W/ FOLIC ACID TABLET (FP) PO SCH (09:57)
[2020-06-22] MEDS: PANTOPRAZOLE 40 MG TABLET PO SCH (09:57)
[2020-06-22] MEDS: IBUPROFEN 400 MG TABLET (FP) PO PRN (09:58)
[2020-06-22] MEDS: NICOTINE 21 MG/24 HOURS TOPICAL PATCH TD SCH (09:58)
[2020-06-22] MEDS: THIAMINE HCL 100 MG TABLET (FP) PO SCH (21:30)
[2020-06-22] MEDS: MELATONIN 5 MG TABLETS PO SCH (21:30)
[2020-06-23] MEDS: DIVALPROEX SODIUM 500 MG TABLET E.C. PO SCH ×3 (06:06→21:08)
[2020-06-23] MEDS: NYSTATIN 500,000 UNITS/5 ML SUSPENSION PO SCH ×5 (06:06→23:07)
[2020-06-23] MEDS: DOCUSATE SODIUM 100 MG CAPSULE (FP) PO SCH ×3 (06:06→21:08)
[2020-06-23] MEDS: PRENATAL VITAMINS W/ FOLIC ACID TABLET (FP) PO SCH (09:52)
[2020-06-23] MEDS: PANTOPRAZOLE 40 MG TABLET PO SCH (09:52)
[2020-06-23] MEDS: SULFAMETHOXAZOLE/TRIMETHOPRIM 800MG/160MG D.S. TABLET PO SCH (09:52)
[2020-06-23] MEDS: NICOTINE 21 MG/24 HOURS TOPICAL PATCH TD SCH (09:53)
--- NOTE | 2020-06-23 10:43 | PN ---
S Progress Note (SOAP) Subjective: Patient states that lesion on his leg is not getting better and is painful when he sits down. States the ABX is not working. He missed one dose on Monday, and took one dose of Motrin yesterday. Objective: General: No apparent distress Extremities: lesion on left lateral leg, upper thigh. Discolored, erythema and eccymotic in appearance with flaking, but smaller than last observed. Raised, Tender to palpation. Vital Signs Period Temp Pulse Resp BP Sys/Prather Pulse Ox Last 24 Hr 97.7 F-97.8 F 64 18 110/68 95-98 06/23/20 10:40 Assessment: Cellulitis 06/23/20 10:42 Plan: Will change abx to Keflex. Encouraged to take abx as prescribed. Advised to take pain medication as needed. Will order bacitracin with clean, dry dressing
[2020-06-23] MEDS: BACITRACIN 0.9 GM PACKET TP SCH ×2 (11:56→21:08)
[2020-06-23] MEDS: CEPHALEXIN MONOHYDRATE 500 MG CAPSULE (UD) PO SCH ×3 (12:56→23:07)
[2020-06-23] MEDS: IBUPROFEN 400 MG TABLET (FP) PO PRN (13:57)
[2020-06-23] MEDS: MELATONIN 5 MG TABLETS PO SCH (21:08)
[2020-06-23] MEDS: THIAMINE HCL 100 MG TABLET (FP) PO SCH (21:08)
[2020-06-23] MEDS: hydrOXYzine PAMOATE 25 MG CAPSULE (FP) PO PRN (21:09)
[2020-06-24] MEDS: CEPHALEXIN MONOHYDRATE 500 MG CAPSULE (UD) PO SCH ×4 (06:29→23:02)
[2020-06-24] MEDS: NYSTATIN 500,000 UNITS/5 ML SUSPENSION PO SCH ×4 (06:29→23:03)
[2020-06-24] MEDS: DIVALPROEX SODIUM 500 MG TABLET E.C. PO SCH ×3 (06:29→21:06)
[2020-06-24] MEDS: DOCUSATE SODIUM 100 MG CAPSULE (FP) PO SCH ×3 (06:36→21:06)
[2020-06-24] MEDS: PRENATAL VITAMINS W/ FOLIC ACID TABLET (FP) PO SCH (10:25)
[2020-06-24] MEDS: NICOTINE 21 MG/24 HOURS TOPICAL PATCH TD SCH (10:25)
[2020-06-24] MEDS: BACITRACIN 0.9 GM PACKET TP SCH ×2 (10:25→21:06)
[2020-06-24] MEDS: PANTOPRAZOLE 40 MG TABLET PO SCH (10:26)
[2020-06-24] MEDS: IBUPROFEN 400 MG TABLET (FP) PO PRN (17:06)
[2020-06-24] MEDS: THIAMINE HCL 100 MG TABLET (FP) PO SCH (21:06)
[2020-06-24] MEDS: MELATONIN 5 MG TABLETS PO SCH (21:06)
[2020-06-24] MEDS: hydrOXYzine PAMOATE 25 MG CAPSULE (FP) PO PRN (21:06)
[2020-06-25] MEDS: DOCUSATE SODIUM 100 MG CAPSULE (FP) PO SCH (06:18)
[2020-06-25] MEDS: NYSTATIN 500,000 UNITS/5 ML SUSPENSION PO SCH (06:18)
[2020-06-25] MEDS: CEPHALEXIN MONOHYDRATE 500 MG CAPSULE (UD) PO SCH (06:18)
[2020-06-25] MEDS: DIVALPROEX SODIUM 500 MG TABLET E.C. PO SCH (06:18)
[2020-06-25 06:46] VITALS: BP 109/70; PULSE 76; TEMP 98
--- NOTE | 2020-06-25 08:34 | DS ---
[facility] Rehab Discharge Summary - [facility] Rehab Discharge Summary Admission Date: 05/30/20 Discharge Date: 06/25/20 - History Present History: Alcohol dependence, Opioid dependence Pertinent Past History: Anemia Hx Seizure - Discharge Physical Exam Vital Signs: Vital Signs Temperature 98 F 06/25/20 06:13 Pulse Rate 76 06/25/20 06:13 Respiratory Rate 18 06/25/20 06:13 Blood Pressure 109/70 06/25/20 06:13 O2 Sat by Pulse Oximetry (%) 98 06/25/20 06:13 Alert o x 3 nad,no resp difficulty oob ambulating with steady gait Active FROM, all limbs Pertinent Admission Physical Exam Findings: Laboratory Tests 06/19/20 10:30 COVID-19 (SAHIL) Not detected - Treatment Discharge Condition: Discharge condition good Hospital Course: [facility] - Medication Discharge Medications: Ambulatory Orders Divalproex [Depakote -] 500 mg PO TID 04/24/20 Duloxetine HCl [Cymbalta -] 30 mg PO DAILY 04/24/20 traZODone HCL [Trazodone HCl] 25 mg PO PRN 04/24/20 Buprenorphine/Naloxone [Suboxone 8 mg/2Mg Sl Film -] 1 each SL DAILY 4 Days #4 film MDD 1 05/01/20 Omeprazole 20 mg PO DAILY 30 Days #1 capsule. 05/01/20 Gabapentin [Neurontin -] 100 mg PO TID #21 capsule 06/24/20 Cephalexin Monohydrate [Keflex -] 500 mg PO Q6HPO 5 Days capsule 06/25/20 - Medication-Assisted Treatment (MAT) Medication-Assisted Treatment (MAT): No - Discharge Instructions Diet, activity, other medical instructions: Diet:Regular Activity: oob ad nasreen Other medical instructions:follow up with CD aftercare at [facility]. follow up with [facility] for medical management as needed. - Diagnosis (1) Alcohol use disorder Status: Chronic (2) Seizure disorder Status: Chronic (3) GERD (gastroesophageal reflux disease) Status: Chronic Qualifiers: Esophagitis presence: esophagitis presence not specified Qualified Code(s): K21.9 - Gastro-esophageal reflux disease without esophagitis (4) Cellulitis of left leg Status: Acute - Follow-up Referral Minutes to complete discharge: 25 - AMA Did Patient Leave Against Medical Advice: No
[2020-06-25] MEDS: PRENATAL VITAMINS W/ FOLIC ACID TABLET (FP) PO SCH (09:41)
[2020-06-25] MEDS: PANTOPRAZOLE 40 MG TABLET PO SCH (09:41)
[2020-06-25] MEDS: BACITRACIN 0.9 GM PACKET TP SCH (09:41)
[2020-06-25] MEDS: NICOTINE 21 MG/24 HOURS TOPICAL PATCH TD SCH (09:41)
== END 2020-06-25 09:50 | disposition other institution (70) | DRG 772 ==
LOC: YASAS 13:08 → Y3W 13:09
PROVIDERS: ADMIT Allergy & Immunology; ATTEND Allergy & Immunology
PROC: HZ42ZZZ Group Counseling for Substance Abuse Treatment, Cognitive-Behavioral (ICD-10-PCS; principal; 2020-05-30)
DX: F10.20 Alcohol dependence, uncomplicated (principal); F11.20 Opioid dependence, uncomplicated; F17.210 Nicotine dependence, cigarettes, uncomplicated; F32.9 Major depressive disorder, single episode, unspecified; B37.0 Candidal stomatitis; D64.9 Anemia, unspecified; G40.909 Epilepsy, unspecified, not intractable, without status epilepticus; G47.00 Insomnia, unspecified; J45.909 Unspecified asthma, uncomplicated; K21.9 Gastro-esophageal reflux disease without esophagitis; L03.116 Cellulitis of left lower limb; R07.9 Chest pain, unspecified; Z91.14 Patient's other noncompliance with medication regimen; Z91.013 Allergy to seafood; Z88.7 Allergy status to serum and vaccine; Z91.048 Other nonmedicinal substance allergy status; Z59.0 Homelessness
CPT/HCPCS: 71046-TC-FY; 93005; 93010; U0003